=== PATIENT | male | born 1965 | race Hispanic/Latino ===

== ENCOUNTER 2019-01-29 11:15 | Inpatient (IN) | payer OTHER ==
--- NOTE | 2019-01-29 13:23 | Emergency Department Report ---
HPI - General Chief Complaint: Abdominal Pain Time Seen by Provider: 01/29/19 12:51 - HPI HPI: 53-year-old male presents to the emergency department from [facility] for a medical evaluation secondary to some swelling in the bilateral lower extre mities and the scrotum. He also complains of some shortness of breath that worsens with exertion and with laying flat. He is currently at [facility] secondary to some recent suicidal ideations and there appears to be some type of diagnosis of bipolar disorder. The patient has a past medical history of hypertension, coronary artery disease with previous AZ, CVA without residual deficits, COPD and previous transaminitis. He denies any alcohol, tobacco or illicit drug use. ED Past Medical Hx - Past Medical History Hx Psychiatric Treatment: Yes - Social History Smoking Status: Former Smoker - Medications Home Medications: Home Medications Medication Instructions Recorded Confirmed Last Taken Type ALBUTEROL Inhaler (OR & NICU) 2 puff IH Q6H 01/29/19 01/29/19 Unknown History [Proair] Apixaban [Eliquis] 5 mg PO BID 01/29/19 01/29/19 01/29/19 History Carvedilol [Coreg] 3.125 mg PO BID 01/29/19 01/29/19 01/29/19 History Divalproex [Steven GUZMAN] 250 mg PO TID 01/29/19 01/29/19 01/29/19 History Ferrous Sulfate [Iron 325 MG] 325 mg PO QAM 01/29/19 01/29/19 01/29/19 History Furosemide [Lasix] 20 mg PO QAM 01/29/19 01/29/19 01/29/19 History Lisinopril [Zestril TAB] 2.5 mg PO QAM 01/29/19 01/29/19 01/29/19 History Pantoprazole [Protonix] 40 mg PO QAM 01/29/19 01/29/19 Unknown History QUEtiapine [SEROquel] 25 mg PO BID 01/29/19 01/29/19 01/29/19 History Spironolactone [Aldactone] 12.5 mg PO QDAY 01/29/19 01/29/19 01/29/19 History ED Review of Systems ROS: Stated complaint: LOWER ABD PAIN/TESTICLES SWELLING Other details as noted in HPI Comment: All other systems reviewed and negative Constitutional: denies: chills, fever Eyes: denies: eye pain, vision change ENT: denies: ear pain, throat pain Respiratory: orthopnea, SOB with exertion. denies: shortness of breath Cardiovascular: edema. denies: chest pain, palpitations Gastrointestinal: denies: abdominal pain, vomiting Genitourinary: denies: dysuria, frequency Musculoskeletal: denies: back pain, arthralgia Skin: denies: rash, lesions Neurological: denies: headache, numbness Physical Exam - Physical Exam Vital Signs: Vital Signs 01/29/19 01/29/19 12:46 12:48 Temperature 97.4 F L Pulse Rate 93 H Respiratory 26 H 26 H Rate Blood Pressure 143/125 [Left] O2 Sat by Pulse 95 96 Oximetry Physical Exam: GENERAL: The patient is well-developed well-nourished. HENT: Normocephalic. Atraumatic. Patient has moist mucous membranes. EYES: Extraocular motions are intact. Pupils equal reactive to light bilaterally. NECK: Supple. Trachea is midline. CHEST/LUNGS: Coarse breath sounds. No tachypnea or accessory muscle use. There is no respiratory distress noted. HEART/CARDIOVASCULAR: Regular. There is no tachycardia. There is no murmur. ABDOMEN: Abdomen is soft, nontender. Patient has normal bowel sounds. There is no abdominal distention. SKIN: 2+ pitting edema to the bilateral lower extremity. Nonpitting edema around the scrotum. NEURO: The patient is awake, alert, and oriented. The patient is cooperative. The patient has no focal neurologic deficits. The patient has normal speech. MUSCULOSKELETAL: There is no tenderness or deformity. There is no evidence of acute injury. ED Course Vital Signs 01/29/19 01/29/19 12:46 12:48 Temperature 97.4 F L Pulse Rate 93 H Respiratory 26 H 26 H Rate Blood Pressure 143/125 [Left] O2 Sat by Pulse 95 96 Oximetry ED Medical Decision Making - Lab Data Result diagrams: 01/29/19 13:58 01/29/19 13:58 - EKG Data -: EKG Interpreted by Nc EKG shows normal: sinus rhythm, axis (left axis deviation), intervals, QRS complexes (nonspecific intraventricular conduction delay), ST-T waves Rate: normal - EKG Data When compared to previous EKG there are: previous EKG unavailable Interpretation: other (sinus rhythm, left axis deviation, nonspecific intraventricular conduction delay) - Radiology Data Radiology results: image reviewed interpreted by me: Chest x-ray shows some pulmonary vascular congestion and bilateral basilar effusions. - Medical Decision Making This patient presents from his psychiatric facility with complaint of lower extremity and scrotal swelling, as well as some shortness of breath that worsens with exertion and orthopnea. EKG does not show any signs of ST elevation AZ. Chest x-ray shows some pulmonary vascular congestion and bilateral basilar pleural effusions. First troponin negative. BNP of almost 9000. Patient was given some Lasix for diuresis and will be admitted to the hospital for further evaluation and treatment. The patient was accepted for admission by the hospitalist, Dr. Shabazz. - Differential Diagnosis CHF, AZ, Venous stasis Critical Care Time: No Critical care attestation.: If time is entered above; I have spent that time in minutes in the direct care of this critically ill patient, excluding procedure time. ED Disposition Clinical Impression: CHF exacerbation Qualifiers: Heart failure type: unspecified Qualified Code(s): I50.9 - Heart failure, unspecified Hypertension Qualifiers: Hypertension type: essential hypertension Qualified Code(s): I10 - Essential (primary) hypertension Disposition: OP ADMIT IP TO THIS HOSP Is pt being admited?: Yes Condition: Fair Time of Disposition: 15:36
--- NOTE | 2019-01-29 13:43 | XRay Report ---
CHEST 1 VIEW 01/29/2019 1:20 PM INDICATION / CLINICAL INFORMATION: SOB. COMPARISON: None available. FINDINGS: SUPPORT DEVICES: None. HEART / MEDIASTINUM: Mild cardiomegaly. LUNGS / PLEURA: Small bilateral pleural effusions and mild bilateral perihilar interstitial opacifica tion likely reflecting mild pulmonary edema. No pneumothorax. ADDITIONAL FINDINGS: No significant additional findings. IMPRESSION: 1. Combined findings as described above likely suggest mild CHF. Signer Name: Lucien Linares MD Signed: 01/29/2019 1:39 PM Workstation Name: [id number]
[2019-01-29 14:33] LABS: Basophils % (Auto) 0.5 % (0.0-1.8); Eosinophils # (Auto) 0.2 K/mm3 (0.0-0.4); Eosinophils % (Auto) 2.4 % (0.0-4.3); Hematocrit 36.3 % (35.5-45.6); Hemoglobin 11.9 gm/dl (11.8-15.2); Lymphocytes # (Auto) 1.8 K/mm3 (1.2-5.4); Lymphocytes % (Auto) 26.1 % (13.4-35.0); Mean Corpuscular HGB Conc 33 % (32-34); Mean Corpuscular Hemoglobin 26 pg (28-32); Mean Corpuscular Volume 79 fl (84-94); Monocytes # (Auto) 0.4 K/mm3 (0.0-0.8); Monocytes % (Auto) 5.5 % (0.0-7.3); Platelet Count 191 K/mm3 (140-440); Red Blood Count 4.58 M/mm3 (3.65-5.03); Red Cell Distribution Width 19.1 % (13.2-15.2)
[2019-01-29 14:41] LABS: Alanine Aminotransferase 19 units/L (7-56); Albumin 3.1 g/dL (3.9-5); BUN/Creatinine Ratio 27; Blood Urea Nitrogen 27 mg/dL (9-20); Calcium 8.3 mg/dL (8.4-10.2); Hemolysis Index 21
[2019-01-29] MEDS ORDERED: LASIX IV ONE (15:07)
[2019-01-29 18:39] LABS: Bilirubin,Urine NEG (Negative); Blood,Urine NEG (Negative); Color,Urine Colorless (Yellow); Protein,Urine <15 mg/dL mg/dL (Negative); Urobilinogen,Urine < 2.0 mg/dL (<2.0)
[2019-01-29 19:03] LABS: WBC,Urine < 1.0 /HPF (0.0-6.0)
--- NOTE | 2019-01-29 21:41 | Event Note ---
Date: 01/29/19 Please see dictated history and physical in the reports CHF exacerbation Hypertension Anticoagulation Bipolar disorder GERD
[2019-01-29] MEDS ORDERED: DILAUDID IV PRN (21:53)
[2019-01-29] MEDS ORDERED: ZOFRAN IV PRN ×2 (21:53→21:55)
[2019-01-29] MEDS ORDERED: SODIUM CHLORIDE FLUSH SYRINGE 10 ML IV PRN ×2 (21:53→21:55)
[2019-01-29] MEDS ORDERED: TYLENOL PO PRN (21:55)
[2019-01-29] MEDS ORDERED: SODIUM CHLORIDE FLUSH SYRINGE 10 ML IV SCH (22:00)
[2019-01-29] MEDS ORDERED: PROAIR IH SCH (22:00)
[2019-01-29] MEDS ORDERED: PROVENTIL IH SCH (22:07)
--- NOTE | 2019-01-29 22:22 | History and Physical Report ---
CHIEF COMPLAINT: Increasing shortness of breath. HISTORY OF PRESENT ILLNESS: A 53-year-old male, comes to the Emergency Room from [facility] for medical evaluation. The patient has increasing swelling of both the legs and the scrotum. Also, increasing shortness of breath, which worsens with exertion and lying flat. The patient was admitted to [email or web address] for suicidal ideations and bipolar disorder. The patient has history of hypertension, LA, coronary artery disease and cerebrovascular accident without residual deficits. The patient does not want to give much history. He requests that I will go through the chart and get his history. In short, the patient has shortness of breath on exertion and also on lying flat. No chest pain. Exacerbating factor is exercise and stress. The relieving factor is rest. PAST MEDICAL HISTORY: Bipolar disorder, hypertension, anticoagulation, congestive heart failure and GERD. PAST SURGICAL HISTORY: Unavailable. FAMILY HISTORY: Hypertension. SOCIAL HISTORY: Does not smoke. No alcohol, no recreational drugs. CURRENT MEDICATIONS: Eliquis 5 mg twice a day, Coreg 3.125 twice a day, Depakote 250 mg p.o. t.i.d., iron tablets 325 mg p.o. daily, furosemide 20 mg p.o. daily, lisinopril 2.5 mg p.o. daily, Protonix 40 mg p.o. daily, Seroquel 25 mg b.i.d., Aldactone 12.5 mg p.o. daily. REVIEW OF SYSTEMS: Significant for shortness of breath with exertion and orthopnea present. Swelling of both lower extremities present. Otherwise, review of systems negative. PHYSICAL EXAMINATION: GENERAL: Middle-aged male, noncooperative. VITAL SIGNS: Blood pressure is 115/81, temperature is 97.6, pulse is 100, respirations are 22, sats are 98%. HEENT: Unremarkable. Pupils equal and reactive. NECK: Supple, no lymphadenopathy, no thyromegaly. LUNGS: Clear to auscultation and percussion. Good air entry. CARDIOVASCULAR: S1, S2 heard. No gallop, no murmur, no rub. Apical impulse in left fifth intercostal space and midclavicular line. ABDOMEN: Soft and benign. No hepatosplenomegaly. No guarding, no rigidity. Hernial orifices are normal. EXTREMITIES: 2+ pedal edema present. CENTRAL NERVOUS SYSTEM: Alert and oriented x 4, nonfocal exam. SKIN: Normal. Slight erythema present on the lower extremities. LABORATORY DATA: Significant for white count of 7000, hemoglobin of 11.9, hematocrit of 36.3, platelet count of 191,000. Sodium is 141, potassium is 4.7, chloride is 101.2, bicarbonate is 31, BUN and creatinine is 27 and 1.0, calcium is 8.3, AST is 20, ALT is 19, alkaline phosphatase is 95. BNP is 8431, total protein is 5.6 and albumin is 3.1. Urine is negative for infection. pH is 8.0. EKG shows heart rate of 95 per minute, sinus rhythm. No acute ST-T wave changes. Chest x-ray shows mild CHF. ASSESSMENT AND PLAN: 1. Congestive heart failure exacerbation. The patient initiated on IV Lasix. Echocardiogram ordered. Daily weights, daily intake and output. Cardiology consult requested. 2. Hypertension. Continue lisinopril and Coreg. 3. Anticoagulation, unclear why the patient is on anticoagulation. The patient is not able to tell. The patient has normal sinus rhythm. Continue Eliquis. 4. Bipolar disorder. Continue Seroquel. 5. Gastroesophageal reflux disease. Continue pantoprazole. 6. Anemia. Continue Lasix. Continue ferrous sulfate. 7. Deep venous thrombosis prophylaxis. The patient is on Eliquis. No Lovenox was started. The patient is already on Protonix for GI prophylaxis. JOB# [id number] AUTUMN/MARILYN
[2019-01-29] MEDS: ALDACTONE PO SCH (22:45)
[2019-01-29] MEDS: COREG PO SCH (22:45)
[2019-01-29] MEDS: ELIQUIS PO SCH (22:45)
[2019-01-29] MEDS: K-DUR PO SCH (22:45)
[2019-01-29] MEDS: SODIUM CHLORIDE FLUSH SYRINGE 10 ML IV SCH (23:19)
[2019-01-30] MEDS ORDERED: PROVENTIL IH PRN (00:53)
[2019-01-30] MEDS: IBUPROFEN PO PRN (01:11)
[2019-01-30] MEDS: LASIX IV SCH ×3 (06:06→18:21)
[2019-01-30 07:11] LABS: Alanine Aminotransferase 18 units/L (7-56); Albumin 3.1 g/dL (3.9-5); BUN/Creatinine Ratio 28; Blood Urea Nitrogen 28 mg/dL (9-20); Calcium 8.3 mg/dL (8.4-10.2); Hemolysis Index 2
[2019-01-30 07:15] LABS: Basophils % (Auto) 0.2 % (0.0-1.8); Eosinophils # (Auto) 0.2 K/mm3 (0.0-0.4); Eosinophils % (Auto) 2.6 % (0.0-4.3); Hematocrit 33.8 % (35.5-45.6); Hemoglobin 10.9 gm/dl (11.8-15.2); Lymphocytes # (Auto) 2.3 K/mm3 (1.2-5.4); Lymphocytes % (Auto) 30.8 % (13.4-35.0); Mean Corpuscular HGB Conc 32 % (32-34); Mean Corpuscular Volume 79 fl (84-94); Monocytes # (Auto) 0.6 K/mm3 (0.0-0.8); Monocytes % (Auto) 8.5 % (0.0-7.3); Platelet Count 219 K/mm3 (140-440); Red Blood Count 4.27 M/mm3 (3.65-5.03)
[2019-01-30 07:23] LABS: Mean Corpuscular Hemoglobin 26 pg (28-32)
[2019-01-30] MEDS: PROVENTIL IH SCH ×3 (08:08→20:46)
[2019-01-30] MEDS: ELIQUIS PO SCH ×2 (09:35→21:43)
[2019-01-30] MEDS: FEOSOL PO SCH (09:35)
[2019-01-30] MEDS: PROTONIX PO SCH (09:36)
[2019-01-30] MEDS: SODIUM CHLORIDE FLUSH SYRINGE 10 ML IV SCH ×2 (09:46→21:44)
[2019-01-30] MEDS: COREG PO SCH ×2 (09:47→21:43)
[2019-01-30] MEDS: ALDACTONE PO SCH (09:48)
[2019-01-30] MEDS: ZESTRIL PO SCH (09:50)
[2019-01-30] MEDS: K-DUR PO SCH ×2 (10:00→21:47)
--- NOTE | 2019-01-30 12:10 | Consultation ---
History of Present Illness Consult date: 01/30/19 Requesting physician: GARRICK ZHAO Consult reason: congestive heart failure History of present illness: The patient is a rather poor historian. He was transferred to [facility] from [facility]. He claims that he has had progressively worsening leg edema, shortness of breath and orthopnea since September 2018. He has no chest pain. He was apparently admitted to [place] on account of suicidal ideation and bipolar disorder. 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 the past.) Past Surgical History: hernia repair (abdominal) Social history: other (former smoker) Family history: CAD Medications and Allergies Allergies Allergy/AdvReac Type Severity Reaction Status Date / Time No Known Allergies Allergy Unverified 01/29/19 12:35 Home Medications Medication Instructions Recorded Confirmed Last Taken Type ALBUTEROL Inhaler (OR & NICU) 2 puff IH Q6H 01/29/19 01/29/19 Unknown History [Proair] Apixaban [Eliquis] 5 mg PO BID 01/29/19 01/29/19 01/29/19 History Carvedilol [Coreg] 3.125 mg PO BID 01/29/19 01/29/19 01/29/[address] [Steven GUZMAN] 250 mg PO TID 01/29/19 01/29/19 01/29/19 History Ferrous Sulfate [Iron 325 MG] 325 mg PO QAM 01/29/19 01/29/19 01/29/19 History Furosemide [Lasix] 20 mg PO QAM 01/29/19 01/29/19 01/29/19 History Lisinopril [Zestril TAB] 2.5 mg PO QAM 01/29/19 01/29/19 01/29/19 History Pantoprazole [Protonix] 40 mg PO QAM 01/29/19 01/29/19 Unknown History QUEtiapine [SEROquel] 25 mg PO BID 01/29/19 01/29/19 01/29/19 History Spironolactone [Aldactone] 12.5 mg PO QDAY 01/29/19 01/29/19 01/29/19 History Active Meds: Active Medications Acetaminophen (Tylenol) 650 mg PO Q4H PRN PRN Reason: Pain MILD(1-3)/Fever >100.5/RAUSCH Albuterol (Proventil) 2.5 mg IH Q4HRT PRN PRN Reason: Shortness Of Breath Albuterol (Proventil) 2.5 mg IH TIDRT [facility] Last Admin: 01/30/19 08:08 Dose: 2.5 mg Documented by: Apixaban (Eliquis) 5 mg PO BID [facility]; Protocol Last Admin: 01/30/19 09:35 Dose: 5 mg Documented by: Carvedilol (Coreg) 3.125 mg PO BID [facility] Last Admin: 01/30/19 09:47 Dose: 3.125 mg Documented by: Divalproex Sodium (Depakote Dr) 250 mg PO TID [facility] Last Admin: 01/30/19 08:29 Dose: 250 mg Documented by: Ferrous Sulfate (Feosol) 325 mg PO QAM [facility] Last Admin: 01/30/19 09:35 Dose: 325 mg Documented by: Furosemide (Lasix) 40 mg IV 0600,1800 [facility] Last Admin: 01/30/19 06:06 Dose: 40 mg Documented by: Hydromorphone HCl (Dilaudid) 0.5 mg IV Q3H PRN PRN Reason: Pain , Severe (7-10) Ibuprofen (Ibuprofen) 600 mg PO Q6H PRN PRN Reason: Pain, Mild (1-3) Last Admin: 01/30/19 01:11 Dose: 600 mg Documented by: Lisinopril (Zestril) 2.5 mg PO QAM [facility] Last Admin: 01/30/19 09:50 Dose: Not Given Documented by: Ondansetron HCl (Zofran) 4 mg IV Q8H PRN PRN Reason: Nausea And Vomiting Pantoprazole Sodium (Protonix) 40 mg PO QAM [facility] Last Admin: 01/30/19 09:36 Dose: 40 mg Documented by: Potassium Chloride (K-Dur) 20 meq PO Q12H [facility] Last Admin: 01/29/19 22:45 Dose: 20 meq Documented by: Quetiapine Fumarate (Seroquel) 25 mg PO BID [facility] Last Admin: 01/30/19 09:36 Dose: 25 mg Documented by: Sodium Chloride (Sodium Chloride Flush Syringe 10 Ml) 10 ml IV BID [facility] Last Admin: 01/30/19 09:46 Dose: 10 ml Documented by: Sodium Chloride (Sodium Chloride Flush Syringe 10 Ml) 10 ml IV PRN PRN PRN Reason: LINE FLUSH Spironolactone (Aldactone) 12.5 mg PO QDAY [facility] Last Admin: 01/30/19 09:48 Dose: 12.5 mg Documented by: Review of Systems Constitutional: no fever, no chills Ears, nose, mouth and throat: no ear pain, no ear discharge, no sore throat Cardiovascular: orthopnea, edema, shortness of breath, no chest pain, no palpitations, no lightheadedness Respiratory: no cough, no hemoptysis Gastrointestinal: no abdominal pain, no nausea, no vomiting, no diarrhea, no constipation Genitourinary Male: no dysuria, no urinary frequency Rectal: no pain, no bleeding Musculoskeletal: no neck stiffness, no neck pain, no myalgias Integumentary: no rash, no pruritis Neurological: no weakness, no parathesias, no numbness, no headaches Endocrine: no cold intolerance, no heat intolerance Hematologic/Lymphatic: no easy bruising, no easy bleeding Allergic/Immunologic: no urticaria, no wheezing Physical Examination Vital Signs Last Vital Signs Temp 97.4 F L 01/30/19 07:44 Pulse 97 H 01/30/19 09:50 Resp 18 01/30/19 08:18 BP 104/74 01/30/19 09:50 Pulse Ox 100 01/30/19 07:44 General appearance: no acute distress HEENT: Positive: EOMI, Normocephaly, Mucus Membranes Moist Neck: Positive: neck supple, trachea midline, JVD/HJR Cardiac: Positive: Reg Rate and Rhythm, S1/S2 Lungs: Positive: clear to auscultation Neuro: Positive: Grossly Intact Abdomen: Positive: Soft, Active Bowel Sounds. Negative: Tender Skin: Positive: Clear. Negative: Rash Musculoskeletal: Normal Range of Motion Extremities: Present: +2 Edema (pitting bilateral leg edema) Results 01/30/19 06:25 01/30/19 06:25 Cardiac Enzymes 01/29/19 01/30/19 Range/Units 13:58 06:25 AST 20 17 (5-40) units/L CBC 01/29/19 01/30/19 Range/Units 13:58 06:25 WBC 7.0 7.5 (4.5-11.0) K/mm3 RBC 4.58 4.27 (3.65-5.03) M/mm3 Hgb 11.9 10.9 L (11.8-15.2) gm/dl Hct 36.3 33.8 L (35.5-45.6) % Plt Count 191 219 (140-440) K/mm3 Lymph # 1.8 2.3 (1.2-5.4) K/mm3 [place] # 0.4 0.6 (0.0-0.8) K/mm3 Eos # 0.2 0.2 (0.0-0.4) K/mm3 Baso # 0.0 0.0 (0.0-0.1) K/mm3 Comprehensive Metabolic Panel 01/29/19 01/30/19 Range/Units 13:58 06:25 Sodium 141 140 (137-145) mmol/L Potassium 4.7 4.4 (3.6-5.0) mmol/L Chloride 101.2 99.8 (98-107) mmol/L Carbon Dioxide 31 H 32 H (22-30) mmol/L BUN 27 H 28 H (9-20) mg/dL Creatinine 1.0 1.0 (0.8-1.5) mg/dL Glucose 80 88 (75-100) mg/dL Calcium 8.3 L 8.3 L (8.4-10.2) mg/dL AST 20 17 (5-40) units/L ALT 19 18 (7-56) units/L Alkaline Phosphatase 95 94 (35-129) units/L Total Protein 5.6 L 5.5 L (6.3-8.2) g/dL Albumin 3.1 L 3.1 L (3.9-5) g/dL - Imaging and Cardiology EKG: image reviewed EKG interpretations - Telemetry EKG Rhythm: Sinus Rhythm - EKG Sinus rhythms and dysrhythmias: sinus rhythm Assessment and Plan I agree with his current regimen. Obtain echocardiogram. - Patient Problems (1) Acute heart failure Current Visit: Yes Status: Acute (2) COPD (chronic obstructive pulmonary disease) Current Visit: Yes Status: Chronic (3) Hypertension Current Visit: Yes Status: Chronic Qualifiers: Hypertension type: essential hypertension Qualified Code(s): I10 - Essential (primary) hypertension (4) H/O: CVA (cerebrovascular accident) Current Visit: Yes Status: Chronic (5) Bipolar disorder Current Visit: Yes Status: Chronic
--- NOTE | 2019-01-30 18:22 | Progress Note ---
Assessment and Plan Assessment and plan: Acute on chronic systolic CHF Admitted to Tele lasix iv Lisinopril Coreg Cardiology following Bipolar patient admitted here from [facility] Psych consulted Hypertension Monitor BP GERD Full code status History Interval history: Shortness of breath No chest pain Hospitalist Physical - Physical exam Narrative exam: Gen: Not in acute distress, sitting up in chair HEENT: Normocephalic, atraumatic Neck: supple, no JVD Heart: S1 and S2 reg, no murmurs, rubs or gallop Lungs:Bilateral basal crackles Abd: soft, non tender, non distended, normal BS Ext: Bilateral pedal edema, no clubbing, no cyanosis Neuro:awake,alert, Oriented X 3. No focal signs - Constitutional Vitals: Temp Pulse Resp BP Pulse Ox 97.1 F L 91 H 20 100/67 94 01/30/19 16:19 01/30/19 16:23 01/30/19 16:19 01/30/19 16:23 01/30/19 16:19 General appearance: Present: no acute distress Results - Labs CBC & Chem 7: 01/30/19 06:25 01/30/19 06:25 Labs: Laboratory Last Values WBC 7.5 K/mm3 (4.5-11.0) 01/30/19 06:25 RBC 4.27 M/mm3 (3.65-5.03) 01/30/19 06:25 Hgb 10.9 gm/dl (11.8-15.2) L 01/30/19 06:25 Hct 33.8 % (35.5-45.6) L 01/30/19 06:25 MCV 79 fl (84-94) L 01/30/19 06:25 MCH 26 pg (28-32) L 01/30/19 06:25 MCHC 32 % (32-34) 01/30/19 06:25 RDW 19.0 % (13.2-15.2) H 01/30/19 06:25 Plt Count 219 K/mm3 (140-440) 01/30/19 06:25 Lymph % (Auto) 30.8 % (13.4-35.0) 01/30/19 06:25 [place] % (Auto) 8.5 % (0.0-7.3) H 01/30/19 06:25 Eos % (Auto) 2.6 % (0.0-4.3) 01/30/19 06:25 Baso % (Auto) 0.2 % (0.0-1.8) 01/30/19 06:25 Lymph # 2.3 K/mm3 (1.2-5.4) 01/30/19 06:25 [place] # 0.6 K/mm3 (0.0-0.8) 01/30/19 06:25 Eos # 0.2 K/mm3 (0.0-0.4) 01/30/19 06:25 Baso # 0.0 K/mm3 (0.0-0.1) 01/30/19 06:25 Seg Neutrophils % 57.9 % (40.0-70.0) 01/30/19 06:25 Seg Neutrophils # 4.4 K/mm3 (1.8-7.7) 01/30/19 06:25 Sodium 140 mmol/L (137-145) 01/30/19 06:25 Potassium 4.4 mmol/L (3.6-5.0) 01/30/19 06:25 Chloride 99.8 mmol/L (98-107) 01/30/19 06:25 Carbon Dioxide 32 mmol/L (22-30) H 01/30/19 06:25 13 mmol/L 01/30/19 06:25 BUN 28 mg/dL (9-20) H 01/30/19 06:25 1.0 mg/dL (0.8-1.5) 01/30/19 06:25 Estimated GFR > 60 ml/min 01/30/19 06:25 28 % 01/30/19 06:25 Glucose 88 mg/dL (75-100) 01/30/19 06:25 6.0 % (4-6) 01/29/19 13:58 Calcium 8.3 mg/dL (8.4-10.2) L 01/30/19 06:25 0.60 mg/dL (0.1-1.2) 01/30/19 06:25 AST 17 units/L (5-40) 01/30/19 06:25 ALT 18 units/L (7-56) 01/30/19 06:25 94 units/L (35-129) 01/30/19 06:25 < 0.010 ng/mL (0.00-0.029) 01/29/19 13:58 NT-Pro-B Natriuret Pep 8431 pg/mL (0-900) H 01/29/19 13:58 5.5 g/dL (6.3-8.2) L 01/30/19 06:25 3.1 g/dL (3.9-5) L 01/30/19 06:25 1.3 % 01/30/19 06:25 Colorless (Yellow) 01/29/19 18:10 Clear (Clear) 01/29/19 18:10 8.0 (5.0-7.0) H 01/29/19 18:10 Ur Specific [place] 1.006 (1.003-1.030) 01/29/19 18:10 <15 mg/dl mg/dL (Negative) 01/29/19 18:10 Neg mg/dL (Negative) 01/29/19 18:10 Neg mg/dL (Negative) 01/29/19 18:10 Neg (Negative) 01/29/19 18:10 Neg (Negative) 01/29/19 18:10 Neg (Negative) 01/29/19 18:10 < 2.0 mg/dL (<2.0) 01/29/19 18:10 Ur Leukocyte Esterase Neg (Negative) 01/29/19 18:10 < 1.0 /HPF (0.0-6.0) 01/29/19 18:10 1.0 /HPF (0.0-6.0) 01/29/19 18:10 Active Medications - Current Medications Current Medications: Generic Name Dose Route Start Last Admin Trade Name Freq PRN Reason Stop Dose Admin Acetaminophen 650 mg 01/29/19 21:53 Tylenol PO Q4H PRN Pain MILD(1-3)/Fever >100.5/RAUSCH Albuterol 2.5 mg 01/30/19 00:53 Proventil IH Q4HRT PRN Shortness Of Breath Albuterol 2.5 mg 01/30/19 08:00 01/30/19 14:20 Proventil IH 2.5 mg TIDRT ZULMA Administration Apixaban 5 mg 01/29/19 22:00 01/30/19 09:35 Eliquis PO 5 mg BID ZULMA Administration Protocol Carvedilol 3.125 mg 01/29/19 22:00 01/30/19 09:47 Coreg PO 3.125 mg BID ZULMA Administration Divalproex Sodium 250 mg 01/30/19 08:00 01/30/19 15:[address] PO 250 mg TID ZULMA Administration Ferrous Sulfate 325 mg 01/30/19 10:00 01/30/19 09:35 Feosol PO 325 mg QAM ZULMA Administration Furosemide 40 mg 01/30/19 06:00 01/30/19 18:19 Lasix IV 40 mg 0600,1800 ZULMA Administration Hydromorphone HCl 0.5 mg 01/29/19 21:53 Dilaudid IV Q3H PRN Pain , Severe (7-10) Ibuprofen 600 mg 01/29/19 21:53 01/30/19 01:11 Ibuprofen PO 600 mg Q6H PRN Administration Pain, Mild (1-3) Lisinopril 2.5 mg 01/30/19 10:00 01/30/19 09:50 Zestril PO Not Given QAM ZULMA Ondansetron HCl 4 mg 01/29/19 21:53 Zofran IV Q8H PRN Nausea And Vomiting Pantoprazole Sodium 40 mg 01/30/19 10:00 01/30/19 09:36 Protonix PO 40 mg QAM ZULMA Administration Potassium Chloride 20 meq 01/29/19 22:00 01/30/19 10:00 K-Dur PO Not Given Q12H ZULMA Quetiapine Fumarate 25 mg 01/29/19 22:00 01/30/19 09:36 Seroquel PO 25 mg BID ZULMA Administration Sodium Chloride 10 ml 01/29/19 22:00 01/30/19 09:46 Sodium Chloride Flush Syringe 10 Ml IV 10 ml BID ZULMA Administration Sodium Chloride 10 ml 01/29/19 21:55 Sodium Chloride Flush Syringe 10 Ml IV PRN PRN LINE FLUSH Spironolactone 12.5 mg 01/29/19 22:00 01/30/19 09:48 Aldactone PO 12.5 mg QDAY ZULMA Administration
[2019-01-31] MEDS: IBUPROFEN PO PRN ×4 (01:26→22:28)
[2019-01-31] MEDS: LASIX IV SCH (07:07)
[2019-01-31] MEDS: PROVENTIL IH SCH ×3 (08:18→20:25)
[2019-01-31] MEDS: COREG PO SCH ×2 (10:38→22:21)
[2019-01-31] MEDS: ELIQUIS PO SCH ×2 (10:38→22:22)
[2019-01-31] MEDS: FEOSOL PO SCH (10:38)
[2019-01-31] MEDS: PROTONIX PO SCH (10:39)
[2019-01-31] MEDS: ALDACTONE PO SCH (10:39)
[2019-01-31] MEDS: SODIUM CHLORIDE FLUSH SYRINGE 10 ML IV SCH ×2 (10:41→22:23)
[2019-01-31] MEDS: ZESTRIL PO SCH (10:41)
--- NOTE | 2019-01-31 15:13 | Consultation ---
History of Present Illness - Reason for Consult Consult date: 01/31/19 Reason for consult: Mental Health Evaluation Requesting physician: LETICIA BRIGHT - Chief Complaint Chief complaint: "I have issues from my past" - History of Present Psychiatric Illness 53 y.o. white male who presnted to the ER from [place] for SOB and swelling in his scrotum/lower extremities. Today the patient was calkm and cooperative during the assessment. He stated that he went to [facility] He stated that he got frustrated with the staff and mentioned something about dying. He stated that he was placed on a 1013 and transferred to [place], He stated that he was never suicidal. He stated that he suffer from PTSD form his days in the [employer]. He stated that he experience nightmares. He stated that he want to seek therapy for his PTSD and take medication. He denies SI/HI's and AVH's. He denies a poor appetite, but acknowledged erratic sleep. He denies recreational drug use and alcohol consumption (etoh).He stated that Depakote (mood) is a home medication. Medications and Allergies Allergies Allergy/AdvReac Type Severity Reaction Status Date / Time No Known Allergies Allergy Unverified 01/29/19 12:35 Home Medications Medication Instructions Recorded Confirmed Last Taken Type ALBUTEROL Inhaler (OR & NICU) 2 puff IH Q6H 01/29/19 01/29/19 Unknown History [Proair] Apixaban [Eliquis] 5 mg PO BID 01/29/19 01/29/19 01/29/19 History Carvedilol [Coreg] 3.125 mg PO BID 01/29/19 01/29/19 01/29/[address] [DepaKOTE DR] 250 mg PO TID 01/29/19 01/29/19 01/29/19 History Ferrous Sulfate [Iron 325 MG] 325 mg PO QAM 01/29/19 01/29/19 01/29/19 History Furosemide [Lasix] 20 mg PO QAM 01/29/19 01/29/19 01/29/19 History Lisinopril [Zestril TAB] 2.5 mg PO QAM 01/29/19 01/29/19 01/29/19 History Pantoprazole [Protonix] 40 mg PO QAM 01/29/19 01/29/19 Unknown History QUEtiapine [SEROquel] 25 mg PO BID 01/29/19 01/29/19 01/29/19 History Spironolactone [Aldactone] 12.5 mg PO QDAY 01/29/19 01/29/19 01/29/19 History Active Meds: Active Medications Acetaminophen (Tylenol) 650 mg PO Q4H PRN PRN Reason: Pain MILD(1-3)/Fever >100.5/RAUSCH Albuterol (Proventil) 2.5 mg IH Q4HRT PRN PRN Reason: Shortness Of Breath Albuterol (Proventil) 2.5 mg IH TIDRT [facility] Last Admin: 01/31/19 15:07 Dose: Not Given Documented by: Apixaban (Eliquis) 5 mg PO BID [facility]; Protocol Last Admin: 01/31/19 10:38 Dose: 5 mg Documented by: Carvedilol (Coreg) 3.125 mg PO BID [facility] Last Admin: 01/31/19 10:38 Dose: 3.125 mg Documented by: Divalproex Sodium (Depakote Dr) 250 mg PO TID [facility] Last Admin: 01/31/19 14:04 Dose: 250 mg Documented by: Ferrous Sulfate (Feosol) 325 mg PO QAM [facility] Last Admin: 01/31/19 10:38 Dose: 325 mg Documented by: Furosemide (Lasix) 40 mg IV 0600,1800 [facility] Last Admin: 01/31/19 07:07 Dose: 40 mg Documented by: Hydromorphone HCl (Dilaudid) 0.5 mg IV Q3H PRN PRN Reason: Pain , Severe (7-10) Ibuprofen (Ibuprofen) 600 mg PO Q6H PRN PRN Reason: Pain, Mild (1-3) Last Admin: 01/31/19 08:16 Dose: 600 mg Documented by: Lisinopril (Zestril) 2.5 mg PO QAM [facility] Last Admin: 01/31/19 10:41 Dose: Not Given Documented by: Ondansetron HCl (Zofran) 4 mg IV Q8H PRN PRN Reason: Nausea And Vomiting Pantoprazole Sodium (Protonix) [facility] Last Admin: 01/31/19 10:39 Dose: 40 mg Documented by: Sodium Chloride (Sodium Chloride Flush Syringe 10 Ml) 10 ml IV BID [facility] Last Admin: 01/31/19 10:41 Dose: 10 ml Documented by: Sodium Chloride (Sodium Chloride Flush Syringe 10 Ml) 10 ml IV PRN PRN PRN Reason: LINE FLUSH Spironolactone (Aldactone) 12.5 mg PO QDAY [facility] Last Admin: 01/31/19 10:39 Dose: 12.5 mg Documented by: Past psychiatric history - Past Medical History Past Medical History: hypertension Past Surgical History: No surgical history - past Psychiatric treatment and history psychiatric treatment history: Hx of PTSD and was seen at the [place]. Denies a a fam psy h x. - Social History Social history: other (Homeless) Mental Status Exam - Vital signs Last Vital Signs Temp 98.3 F 01/31/19 12:40 Pulse 96 H 01/31/19 12:40 Resp 20 01/31/19 12:40 BP 81/51 01/31/19 12:40 Pulse Ox 99 01/31/19 12:40 - Exam Narrative exam: MSE: Appearance: calm, cooperative Behavior: regular eye contact Speech: regular rate and tone Mood: "okay" Affect: congruent to mood Thought Process: linear Thought Content: denies SI/HI's and AVH's Motor Activity: sitting up in bed Cognition: A/O x3 Insight: appropriate Judgment: appropriate Results Result Diagrams: 01/30/19 06:25 01/30/19 06:25 All other labs normal. Assessment and Plan Assessment and plan: Impression: PTSD. Insomnia. Today the patient was calm and cooperative during the assessment. The patient's is no threat to self. DDx: R/O MDD Recommendation/Plan: Rescind 1013. Start Prozac 20 mg PO daily for PTSD and Melatonin 5 mg PO HS for sleep. Discussed possible suicidality/medication induced rangel with the patient reference Prozac, he verbalized understanding. Will follow up with the patient in 24 hours. Dispo: The patient can follow up with [facility] or the [place] for outpatient psy services. Staffed with Dr Monica Meier.
[2019-01-31] MEDS: PROzac PO SCH (15:49)
[2019-01-31] MEDS ORDERED: PROzac PO SCH (16:00)
--- NOTE | 2019-01-31 17:31 | Progress Note ---
Assessment and Plan Continue IV diuretics. Schedule coronary angiography in am - discussed with pt who has agreed to proceed. - Patient Problems (1) Acute HFrEF (heart failure with reduced ejection fraction) Current Visit: Yes Status: Acute (2) Cardiomyopathy Current Visit: Yes Status: Acute (3) Pericardial effusion Current Visit: Yes Status: Acute (4) COPD (chronic obstructive pulmonary disease) Current Visit: Yes Status: Chronic (5) Hypertension Current Visit: Yes Status: Chronic Qualifiers: Hypertension type: essential hypertension Qualified Code(s): I10 - Essential (primary) hypertension (6) H/O: CVA (cerebrovascular accident) Current Visit: Yes Status: Chronic (7) Bipolar disorder Current Visit: Yes Status: Chronic Subjective Date of service: 01/31/19 Principal diagnosis: Acute HFrEF, CMP, Pericardial effusion, COPD, Bipolar DO, HTN Interval history: He feels better today. We discussed echo findings. I have reviewed his echo. NL LV size with severe global hypokinesis, biatrial enlargement, and small to moderate pericardial effusion. Objective Vital Signs Temp Pulse Pulse Pulse Resp Resp Resp 01/31/19 15:45 01/31/19 12:40 98.3 F 96 H 01/31/19 11:00 100 H 01/31/19 10:41 100 H 01/31/19 10:39 106 H 01/31/19 10:38 106 H 01/31/19 10:00 102 H 01/31/19 08:36 100 H 18 01/31/19 08:18 99 H 18 01/31/19 08:16 20 01/31/19 08:09 98.5 F 28 H 01/31/19 08:00 01/31/19 07:58 122.0 F H 101 H 28 H 01/31/19 05:52 97.3 F L 102 H 20 01/31/19 05:15 97.3 F L 95 H 01/31/19 01:26 20 01/30/19 23:59 01/30/19 22:00 109 H 01/30/19 21:43 104 H 01/30/19 21:20 97.6 F 20 01/30/19 21:15 97.6 F 100 H 01/30/19 20:46 105 H 01/30/19 19:53 97.3 F L 104 H 01/30/19 18:21 97 H 22 BP BP BP Pulse Ox 01/31/19 15:45 01/31/19 12:40 81/51 99 01/31/19 11:00 97 01/31/19 10:41 108/80 01/31/19 10:39 108/80 01/31/19 10:38 108/80 01/31/19 10:00 01/31/19 08:36 01/31/19 08:18 01/31/19 08:16 01/31/19 08:09 108/80 01/31/19 08:00 01/31/19 07:58 96/71 97 01/31/19 05:52 102/81 96 01/31/19 05:15 95/74 96 01/31/19 01:26 01/30/19 23:59 01/30/19 22:00 01/30/19 21:43 103/73 01/30/19 21:20 103/73 01/30/19 21:15 100/73 98 01/30/19 20:46 01/30/19 19:53 94/61 99 01/30/19 18:21 108/79 100 - Physical Examination General: No Apparent Distress HEENT: Positive: EOMI, Normocephaly, Mucus Membranes Moist Neck: Positive: neck supple, trachea midline, JVD/HJR Cardiac: Positive: Reg Rate and Rhythm, S1/S2 Lungs: Positive: clear to auscultation Neuro: Positive: Grossly Intact Abdomen: Positive: Soft, Active Bowel Sounds. Negative: Tender Skin: Positive: Clear. Negative: Rash Musculoskeletal: Normal Range of Motion Extremities: Present: +2 Edema (pitting bilateral leg edema) - Imaging and Cardiology EKG: image reviewed - Telemetry EKG Rhythm: Sinus Rhythm - EKG Sinus rhythms and dysrhythmias: sinus rhythm
[2019-01-31 17:37] LABS: Lipase 26 units/L (13-60)
[2019-01-31] MEDS ORDERED: NACL 0.9% 500 ML 500 ML IV SCH (18:00)
[2019-01-31] MEDS: MELATONIN PO SCH (22:23)
[2019-02-01 05:59] LABS: INR 1.46 (0.87-1.13)
[2019-02-01 06:00] LABS: Partial Thromboplastin Time 29.7 Sec. (24.2-36.6)
[2019-02-01] MEDS: LASIX IV SCH ×2 (06:37→12:19)
--- NOTE | 2019-02-01 07:11 | Progress Note ---
Assessment and Plan Assessment and plan: Acute on chronic systolic CHF Admitted to Tele lasix iv Lisinopril Coreg Cardiology following Bipolar patient admitted here from [facility] Discussed with Psych. 1013 rescinded Hypertension Monitor BP GERD Full code status History Interval history: Shortness of breath No chest pain Hospitalist Physical - Physical exam Narrative exam: Gen: Not in acute distress, sitting up in chair HEENT: Normocephalic, atraumatic Neck: supple, no JVD Heart: S1 and S2 reg, no murmurs, rubs or gallop Lungs:Bilateral basal crackles Abd: soft, non tender, non distended, normal BS Ext: Bilateral pedal edema, no clubbing, no cyanosis Neuro:awake,alert, Oriented X 3. No focal signs - Constitutional Vitals: Temp Pulse Resp BP Pulse Ox 98.0 F 101 H 18 111/80 98 02/01/19 04:13 02/01/19 04:13 02/01/19 04:13 02/01/19 04:13 02/01/19 04:13 General appearance: Present: no acute distress Results - Labs CBC & Chem 7: 01/30/19 06:25 01/30/19 06:25 Labs: Laboratory Last Values WBC 7.5 K/mm3 (4.5-11.0) 01/30/19 06:25 RBC 4.27 M/mm3 (3.65-5.03) 01/30/19 06:25 Hgb 10.9 gm/dl (11.8-15.2) L 01/30/19 06:25 Hct 33.8 % (35.5-45.6) L 01/30/19 06:25 MCV 79 fl (84-94) L 01/30/19 06:25 MCH 26 pg (28-32) L 01/30/19 06:25 MCHC 32 % (32-34) 01/30/19 06:25 RDW 19.0 % (13.2-15.2) H 01/30/19 06:25 Plt Count 219 K/mm3 (140-440) 01/30/19 06:25 Lymph % (Auto) 30.8 % (13.4-35.0) 01/30/19 06:25 [place] % (Auto) 8.5 % (0.0-7.3) H 01/30/19 06:25 Eos % (Auto) 2.6 % (0.0-4.3) 01/30/19 06:25 Baso % (Auto) 0.2 % (0.0-1.8) 01/30/19 06:25 Lymph # 2.3 K/mm3 (1.2-5.4) 01/30/19 06:25 [place] # 0.6 K/mm3 (0.0-0.8) 01/30/19 06:25 Eos # 0.2 K/mm3 (0.0-0.4) 01/30/19 06:25 Baso # 0.0 K/mm3 (0.0-0.1) 01/30/19 06:25 Seg Neutrophils % 57.9 % (40.0-70.0) 01/30/19 06:25 Seg Neutrophils # 4.4 K/mm3 (1.8-7.7) 01/30/19 06:25 PT 17.4 Sec. (12.2-14.9) H 02/01/19 05:33 INR 1.46 (0.87-1.13) H 02/01/19 05:33 APTT 29.7 Sec. (24.2-36.6) 02/01/19 05:33 Sodium 140 mmol/L (137-145) 01/30/19 06:25 Potassium 4.4 mmol/L (3.6-5.0) 01/30/19 06:25 Chloride 99.8 mmol/L (98-107) 01/30/19 06:25 Carbon Dioxide 32 mmol/L (22-30) H 01/30/19 06:25 13 mmol/L 01/30/19 06:25 BUN 28 mg/dL (9-20) H 01/30/19 06:25 1.0 mg/dL (0.8-1.5) 01/30/19 06:25 Estimated GFR > 60 ml/min 01/30/19 06:25 28 % 01/30/19 06:25 Glucose 88 mg/dL (75-100) 01/30/19 06:25 6.0 % (4-6) 01/29/19 13:58 Calcium 8.3 mg/dL (8.4-10.2) L 01/30/19 06:25 0.60 mg/dL (0.1-1.2) 01/30/19 06:25 AST 17 units/L (5-40) 01/30/19 06:25 ALT 18 units/L (7-56) 01/30/19 06:25 94 units/L (35-129) 01/30/19 06:25 < 0.010 ng/mL (0.00-0.029) 01/29/19 13:58 NT-Pro-B Natriuret Pep 8431 pg/mL (0-900) H 01/29/19 13:58 5.5 g/dL (6.3-8.2) L 01/30/19 06:25 3.1 g/dL (3.9-5) L 01/30/19 06:25 1.3 % 01/30/19 06:25 Amylase 30 units/L (27-131) 01/31/19 16:20 26 units/L (13-60) 01/31/19 16:20 Colorless (Yellow) 01/29/19 18:10 Clear (Clear) 01/29/19 18:10 8.0 (5.0-7.0) H 01/29/19 18:10 Ur Specific [place] 1.006 (1.003-1.030) 01/29/19 18:10 <15 mg/dl mg/dL (Negative) 01/29/19 18:10 Neg mg/dL (Negative) 01/29/19 18:10 Neg mg/dL (Negative) 01/29/19 18:10 Neg (Negative) 01/29/19 18:10 Neg (Negative) 01/29/19 18:10 Neg (Negative) 01/29/19 18:10 < 2.0 mg/dL (<2.0) 01/29/19 18:10 Ur Leukocyte Esterase Neg (Negative) 01/29/19 18:10 < 1.0 /HPF (0.0-6.0) 01/29/19 18:10 1.0 /HPF (0.0-6.0) 01/29/19 18:10 Active Medications - Current Medications Current Medications: Generic Name Dose Route Start Last Admin Trade Name Freq PRN Reason Stop Dose Admin Acetaminophen 650 mg 01/29/19 21:53 Tylenol PO Q4H PRN Pain MILD(1-3)/Fever >100.5/RAUSCH Albuterol 2.5 mg 01/30/19 00:53 Proventil IH Q4HRT PRN Shortness Of Breath Albuterol 2.5 mg 01/30/19 08:00 01/31/19 20:25 Proventil IH 2.5 mg TIDRT ZULMA Administration Apixaban 5 mg 01/29/19 22:00 01/31/19 22:22 Eliquis PO 5 mg BID ZULMA Administration Protocol Carvedilol 3.125 mg 01/29/19 22:00 01/31/19 22:21 Coreg PO 3.125 mg BID ZULMA Administration Divalproex Sodium 250 mg 01/30/19 08:00 01/31/19 22:[address] PO 250 mg TID [facility] Administration Ferrous Sulfate 325 mg 01/30/19 10:00 01/31/19 10:38 Feosol PO 325 mg QAM [facility] Administration Fluoxetine HCl 20 mg 01/31/19 16:00 01/31/19 15:49 Prozac PO 20 mg QDAY [facility] Administration Furosemide 40 mg 01/30/19 06:00 02/01/19 06:37 Lasix IV Not Given 0600,1800 [facility] Hydromorphone HCl 0.5 mg 01/29/19 21:53 Dilaudid IV Q3H PRN Pain , Severe (7-10) Ibuprofen 600 mg 01/29/19 21:53 01/31/19 22:28 Ibuprofen PO 600 mg Q6H PRN Administration Pain, Mild (1-3) Lisinopril 2.5 mg 01/30/19 10:00 01/31/19 10:41 Zestril PO Not Given QAM [facility] Melatonin 5 mg 01/31/19 22:00 01/31/19 22:23 Melatonin PO 5 mg QHS [facility] Administration Ondansetron HCl 4 mg 01/29/19 21:53 Zofran IV Q8H PRN Nausea And Vomiting Pantoprazole Sodium 40 mg 01/30/19 10:00 01/31/19 10:39 Protonix PO 40 mg QAM [facility] Administration Sodium Chloride 10 ml 01/29/19 22:00 01/31/19 22:23 Sodium Chloride Flush Syringe 10 Ml IV 10 ml BID [facility]ULMA Administration Sodium Chloride 10 ml 01/29/19 21:55 Sodium Chloride Flush Syringe 10 Ml IV PRN PRN LINE FLUSH Spironolactone 12.5 mg 01/29/19 22:00 01/31/19 10:39 Aldactone PO 12.5 mg QDAY [facility]MA Administration
[2019-02-01] MEDS: PROVENTIL IH SCH ×3 (08:12→20:06)
[2019-02-01] MEDS ORDERED: HEPARIN 10,000 UNITS/10 ML ONE (10:25)
[2019-02-01] MEDS ORDERED: HEPARIN/NS 5000 UNIT/500ML(CATH LAB) 500 ML IR ONE (10:25)
[2019-02-01] MEDS ORDERED: NITROGLYCERIN SYRINGE 0 ML ONE (10:25)
[2019-02-01] MEDS ORDERED: CALAN ONE (10:25)
[2019-02-01] MEDS ORDERED: XYLOCAINE 2% INFILTRATI ONE (10:25)
--- NOTE | 2019-02-01 11:25 | Event Note ---
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 will cancel cath and medical management of non ischemic cardiomyopathy.
[2019-02-01] MEDS: ALDACTONE PO SCH (12:15)
[2019-02-01] MEDS: FEOSOL PO SCH (12:15)
[2019-02-01] MEDS: ZESTRIL PO SCH (12:15)
[2019-02-01] MEDS: PROzac PO SCH (12:15)
[2019-02-01] MEDS: COREG PO SCH ×2 (12:16→21:52)
[2019-02-01] MEDS: PROTONIX PO SCH (12:16)
[2019-02-01] MEDS: ELIQUIS PO SCH ×2 (12:19→21:53)
--- NOTE | 2019-02-01 13:39 | Progress Note ---
Assessment and Plan Assessment and plan: Acute on chronic systolic CHF Admitted to Tele lasix iv Lisinopril Coreg Cardiology following was supposed to have cardiac cath today but cancelled He feels better, less SOB Bipolar patient admitted here from [facility] Discussed with Psych. 1013 rescinded Hypertension Monitor BP GERD Full code status History Interval history: Less Shortness of breath Less leg edema No chest pain Hospitalist Physical - Physical exam Narrative exam: Gen: Not in acute distress, sitting up in chair HEENT: Normocephalic, atraumatic Neck: supple, no JVD Heart: S1 and S2 reg, no murmurs, rubs or gallop Lungs:Bilateral basal crackles Abd: soft, non tender, non distended, normal BS Ext: Bilateral pedal edema, no clubbing, no cyanosis Neuro: Awake,alert, Oriented X 3. No focal signs - Constitutional Vitals: Temp Pulse Resp BP Pulse Ox 98.3 F 102 H 18 112/81 98 02/01/19 12:39 02/01/19 12:39 02/01/19 12:39 02/01/19 12:39 02/01/19 12:39 General appearance: Present: no acute distress Results - Labs CBC & Chem 7: 01/30/19 06:25 01/30/19 06:25 Labs: Laboratory Last Values WBC 7.5 K/mm3 (4.5-11.0) 01/30/19 06:25 RBC 4.27 M/mm3 (3.65-5.03) 01/30/19 06:25 Hgb 10.9 gm/dl (11.8-15.2) L 01/30/19 06:25 Hct 33.8 % (35.5-45.6) L 01/30/19 06:25 MCV 79 fl (84-94) L 01/30/19 06:25 MCH 26 pg (28-32) L 01/30/19 06:25 MCHC 32 % (32-34) 01/30/19 06:25 RDW 19.0 % (13.2-15.2) H 01/30/19 06:25 Plt Count 219 K/mm3 (140-440) 01/30/19 06:25 Lymph % (Auto) 30.8 % (13.4-35.0) 01/30/19 06:25 [place] % (Auto) 8.5 % (0.0-7.3) H 01/30/19 06:25 Eos % (Auto) 2.6 % (0.0-4.3) 01/30/19 06:25 Baso % (Auto) 0.2 % (0.0-1.8) 01/30/19 06:25 Lymph # 2.3 K/mm3 (1.2-5.4) 01/30/19 06:25 [place] # 0.6 K/mm3 (0.0-0.8) 01/30/19 06:25 Eos # 0.2 K/mm3 (0.0-0.4) 01/30/19 06:25 Baso # 0.0 K/mm3 (0.0-0.1) 01/30/19 06:25 Seg Neutrophils % 57.9 % (40.0-70.0) 01/30/19 06:25 Seg Neutrophils # 4.4 K/mm3 (1.8-7.7) 01/30/19 06:25 PT 17.4 Sec. (12.2-14.9) H 02/01/19 05:33 INR 1.46 (0.87-1.13) H 02/01/19 05:33 APTT 29.7 Sec. (24.2-36.6) 02/01/19 05:33 Sodium 140 mmol/L (137-145) 01/30/19 06:25 Potassium 4.4 mmol/L (3.6-5.0) 01/30/19 06:25 Chloride 99.8 mmol/L (98-107) 01/30/19 06:25 Carbon Dioxide 32 mmol/L (22-30) H 01/30/19 06:25 13 mmol/L 01/30/19 06:25 BUN 28 mg/dL (9-20) H 01/30/19 06:25 1.0 mg/dL (0.8-1.5) 01/30/19 06:25 Estimated GFR > 60 ml/min 01/30/19 06:25 28 % 01/30/19 06:25 Glucose 88 mg/dL (75-100) 01/30/19 06:25 POC Glucose 135 (70-105) H 02/01/19 05:35 6.0 % (4-6) 01/29/19 13:58 Calcium 8.3 mg/dL (8.4-10.2) L 01/30/19 06:25 0.60 mg/dL (0.1-1.2) 01/30/19 06:25 AST 17 units/L (5-40) 01/30/19 06:25 ALT 18 units/L (7-56) 01/30/19 06:25 94 units/L (35-129) 01/30/19 06:25 < 0.010 ng/mL (0.00-0.029) 01/29/19 13:58 NT-Pro-B Natriuret Pep 8431 pg/mL (0-900) H 01/29/19 13:58 5.5 g/dL (6.3-8.2) L 01/30/19 06:25 3.1 g/dL (3.9-5) L 01/30/19 06:25 1.3 % 01/30/19 06:25 Amylase 30 units/L (27-131) 01/31/19 16:20 26 units/L (13-60) 01/31/19 16:20 Colorless (Yellow) 01/29/19 18:10 Clear (Clear) 01/29/19 18:10 8.0 (5.0-7.0) H 01/29/19 18:10 Ur Specific [place] 1.006 (1.003-1.030) 01/29/19 18:10 <15 mg/dl mg/dL (Negative) 01/29/19 18:10 Neg mg/dL (Negative) 01/29/19 18:10 Neg mg/dL (Negative) 01/29/19 18:10 Neg (Negative) 01/29/19 18:10 Neg (Negative) 01/29/19 18:10 Neg (Negative) 01/29/19 18:10 < 2.0 mg/dL (<2.0) 01/29/19 18:10 Ur Leukocyte Esterase Neg (Negative) 01/29/19 18:10 < 1.0 /HPF (0.0-6.0) 01/29/19 18:10 1.0 /HPF (0.0-6.0) 01/29/19 18:10 Valproic Acid 51.6 ug/mL (50-100) 02/01/19 09:54 Active Medications - Current Medications Current Medications: Generic Name Dose Route Start Last Admin Trade Name Freq PRN Reason Stop Dose Admin Acetaminophen 650 mg 01/29/19 21:53 Tylenol PO Q4H PRN Pain MILD(1-3)/Fever >100.5/RAUSCH Albuterol 2.5 mg 01/30/19 00:53 Proventil IH Q4HRT PRN Shortness Of Breath Albuterol 2.5 mg 01/30/19 08:00 02/01/19 13:03 Proventil IH 2.5 mg TIDRT ZULMA Administration Apixaban 5 mg 01/29/19 22:00 02/01/19 12:19 Eliquis PO 5 mg BID ZULMA Administration Protocol Carvedilol 3.125 mg 01/29/19 22:00 02/01/19 12:16 Coreg PO 3.125 mg BID ZULMA Administration Digoxin 0.25 mg 02/01/19 10:00 Lanoxin PO 02/02/19 04:01 Q6H ZULMA Divalproex Sodium 250 mg 01/30/19 08:00 02/01/19 12:[address] PO 250 mg TID ZULMA Administration Ferrous Sulfate 325 mg 01/30/19 10:00 02/01/19 12:15 Feosol PO 325 mg QAM ZULMA Administration Fluoxetine HCl 20 mg 01/31/19 16:00 02/01/19 12:15 Prozac PO 20 mg QDAY ZULMA Administration Furosemide 40 mg 01/30/19 06:00 02/01/19 12:19 Lasix IV Not Given 0600,1800 [facility] Hydromorphone HCl 0.5 mg 01/29/19 21:53 Dilaudid IV Q3H PRN Pain , Severe (7-10) Ibuprofen 600 mg 01/29/19 21:53 01/31/19 22:28 Ibuprofen PO 600 mg Q6H PRN Administration Pain, Mild (1-3) Lisinopril 2.5 mg 01/30/19 10:00 02/01/19 12:15 Zestril PO 2.5 mg QAM ZULMA Administration Melatonin 5 mg 01/31/19 22:00 01/31/19 22:23 Melatonin PO 5 mg QHS ZULMA Administration Ondansetron HCl 4 mg 07/16/19 21:53 Zofran IV Q8H PRN Nausea And Vomiting Pantoprazole Sodium 40 mg 01/30/19 10:00 02/01/19 12:16 Protonix PO 40 mg QAM ZULMA Administration Sodium Chloride 10 ml 01/29/19 22:00 01/31/19 22:23 Sodium Chloride Flush Syringe 10 Ml IV 10 ml BID ZULMA Administration Sodium Chloride 10 ml 01/29/19 21:55 Sodium Chloride Flush Syringe 10 Ml IV PRN PRN LINE FLUSH Spironolactone 12.5 mg 01/29/19 22:00 02/01/19 12:15 Aldactone PO 12.5 mg QDAY ZULMA Administration
--- NOTE | 2019-02-01 14:08 | Progress Note ---
Subjective - Reason for Consult Consult date: 02/01/19 Reason for consult: Psychiatry Follow-up - Chief Complaint Chief complaint: "'m well today" 53 y.o. white male who presnted to the ER from [place] for SOB and swelling in his scrotum/lower extremities. Today the patient was calm and cooperative during the assessment. He stated that he will probably be discharged on Monday. He stated that he will follow up with the [place] for outpatient psy services. He denies SI/HI's and AVH's. He denies any side effects from his medication. Mental Status Exam - Vital signs Last Vital Signs Temp 98.3 F 02/01/19 12:39 Pulse 102 H 02/01/19 12:39 Resp 18 02/01/19 12:39 BP 112/81 02/01/19 12:39 Pulse Ox 98 02/01/19 12:39 - Exam Narrative exam: MSE: Appearance: calm, cooperative Behavior: regular eye contact Speech: regular rate and tone Mood: "okay" Affect: congruent to mood Thought Process: linear Thought Content: denies SI/HI's and AVH's Motor Activity: sitting up in bed Cognition: A/O x3 Insight: appropriate Judgment: appropriate Assessment and Plan Impression: PTSD. Insomnia. Today the patient was calm and cooperative during the assessment. The patient's is no threat to self. DDx: R/O MDD Recommendation/Plan: Rescind 1013. Start Prozac 20 mg PO daily for PTSD and Melatonin 5 mg PO HS for sleep. Discussed possible suicidality/medication induced rangel with the patient reference Prozac, he verbalized understanding. Psy sign off. Dispo: The patient can follow up with [facility] or the [place] for outpatient psy services. Will staff with Dr Monica Meier.
--- NOTE | 2019-02-01 15:22 | Progress Note ---
Assessment and Plan Continue mgt. Needs lifevest sent from [facility]. Add Digoxin. - Patient Problems (1) Acute HFrEF (heart failure with reduced ejection fraction) Current Visit: Yes Status: Acute (2) Cardiomyopathy Current Visit: Yes Status: Acute (3) Pericardial effusion Current Visit: Yes Status: Acute (4) COPD (chronic obstructive pulmonary disease) Current Visit: Yes Status: Chronic (5) Hypertension Current Visit: Yes Status: Chronic Qualifiers: Hypertension type: essential hypertension Qualified Code(s): I10 - Essential (primary) hypertension (6) H/O: CVA (cerebrovascular accident) Current Visit: Yes Status: Chronic (7) Bipolar disorder Current Visit: Yes Status: Chronic Subjective Date of service: 02/01/19 Principal diagnosis: Acute HFrEF, CMP, Pericardial effusion, COPD, Bipolar DO, HTN Interval history: He claims that he has a lifevest at the police [facility] in [facility] which they promised to send over for him. He needs to have a lifevest. Objective Vital Signs Temp Pulse Pulse Resp Resp BP Pulse Ox 02/01/19 13:03 97 H 20 02/01/19 12:39 98.3 F 102 H 18 112/81 98 02/01/19 08:42 103 H 02/01/19 08:12 101 H 20 02/01/19 04:13 98.0 F 101 H 18 111/80 98 01/31/19 23:37 98.0 F 100 H 20 91/56 94 01/31/19 22:28 20 01/31/19 22:21 104 H 106/77 01/31/19 22:00 98 H 01/31/19 20:32 103 H 18 01/31/19 19:46 98.0 F 108 H 18 106/77 99 01/31/19 16:34 97.8 F 90 20 99/74 94 01/31/19 15:45 20 - Physical Examination General: No Apparent Distress HEENT: Positive: EOMI, Normocephaly, Mucus Membranes Moist Neck: Positive: neck supple, trachea midline, JVD/HJR Cardiac: Positive: Reg Rate and Rhythm, S1/S2 Lungs: Positive: clear to auscultation Neuro: Positive: Grossly Intact Abdomen: Positive: Soft, Active Bowel Sounds. Negative: Tender Skin: Positive: Clear. Negative: Rash Musculoskeletal: Normal Range of Motion Extremities: Present: +2 Edema (pitting bilateral leg edema) - Labs and Meds Coagulation 02/01/19 Range/Units 05:33 PT 17.4 H (12.2-14.9) Sec. INR 1.46 H (0.87-1.13) APTT 29.7 (24.2-36.6) Sec. - Imaging and Cardiology EKG: image reviewed - EKG Sinus rhythms and dysrhythmias: sinus rhythm
[2019-02-01] MEDS: SODIUM CHLORIDE FLUSH SYRINGE 10 ML IV SCH ×2 (19:02→21:54)
[2019-02-01] MEDS: LANOXIN PO SCH ×2 (19:02→21:51)
[2019-02-01] MEDS: MELATONIN PO SCH (21:53)
[2019-02-01] MEDS: IBUPROFEN PO PRN (21:53)
[2019-02-02] MEDS: LANOXIN PO SCH (05:06)
[2019-02-02] MEDS: LASIX IV SCH ×3 (05:06→17:58)
[2019-02-02] MEDS: IBUPROFEN PO PRN (05:26)
--- NOTE | 2019-02-02 09:45 | Progress Note ---
Assessment and Plan Assessment and plan: Acute on chronic systolic CHF Admitted to Tele lasix iv Lisinopril Coreg Cardiology following He feels better, less SOB He states he had a life vest which he states is somewhere in [facility]. case management working to get it Bipolar patient admitted here from [facility] Discussed with Psych. 1013 rescinded Hypertension Monitor BP GERD Full code status History Interval history: Less Shortness of breath Less leg edema No chest pain Hospitalist Physical - Physical exam Narrative exam: Gen: Not in acute distress, sitting up in chair HEENT: Normocephalic, atraumatic Neck: supple, no JVD Heart: S1 and S2 reg, no murmurs, rubs or gallop Lungs:Bilateral basal crackles, no wheeze Abd: soft, non tender, non distended, normal BS Ext: Bilateral pedal edema, no clubbing, no cyanosis Neuro: Awake,alert, Oriented X 3. No focal signs - Constitutional Vitals: Temp Pulse Resp BP Pulse Ox 97.6 F 102 H 20 113/85 100 02/02/19 04:49 02/02/19 05:08 02/02/19 04:49 02/02/19 05:06 02/02/19 05:08 General appearance: Present: no acute distress Results - Labs CBC & Chem 7: 01/30/19 06:25 02/02/19 09:48 Labs: Laboratory Last Values WBC 7.5 K/mm3 (4.5-11.0) 01/30/19 06:25 RBC 4.27 M/mm3 (3.65-5.03) 01/30/19 06:25 Hgb 10.9 gm/dl (11.8-15.2) L 01/30/19 06:25 Hct 33.8 % (35.5-45.6) L 01/30/19 06:25 MCV 79 fl (84-94) L 01/30/19 06:25 MCH 26 pg (28-32) L 01/30/19 06:25 MCHC 32 % (32-34) 01/30/19 06:25 RDW 19.0 % (13.2-15.2) H 01/30/19 06:25 Plt Count 219 K/mm3 (140-440) 01/30/19 06:25 Lymph % (Auto) 30.8 % (13.4-35.0) 01/30/19 06:25 [place] % (Auto) 8.5 % (0.0-7.3) H 01/30/19 06:25 Eos % (Auto) 2.6 % (0.0-4.3) 01/30/19 06:25 Baso % (Auto) 0.2 % (0.0-1.8) 01/30/19 06:25 Lymph # 2.3 K/mm3 (1.2-5.4) 01/30/19 06:25 [place] # 0.6 K/mm3 (0.0-0.8) 01/30/19 06:25 Eos # 0.2 K/mm3 (0.0-0.4) 01/30/19 06:25 Baso # 0.0 K/mm3 (0.0-0.1) 01/30/19 06:25 Seg Neutrophils % 57.9 % (40.0-70.0) 01/30/19 06:25 Seg Neutrophils # 4.4 K/mm3 (1.8-7.7) 01/30/19 06:25 PT 17.4 Sec. (12.2-14.9) H 02/01/19 05:33 INR 1.46 (0.87-1.13) H 02/01/19 05:33 APTT 29.7 Sec. (24.2-36.6) 02/01/19 05:33 Sodium 140 mmol/L (137-145) 01/30/19 06:25 Potassium 4.4 mmol/L (3.6-5.0) 01/30/19 06:25 Chloride 99.8 mmol/L (98-107) 01/30/19 06:25 Carbon Dioxide 32 mmol/L (22-30) H 01/30/19 06:25 13 mmol/L 01/30/19 06:25 BUN 28 mg/dL (9-20) H 01/30/19 06:25 1.0 mg/dL (0.8-1.5) 01/30/19 06:25 Estimated GFR > 60 ml/min 01/30/19 06:25 28 % 01/30/19 06:25 Glucose 88 mg/dL (75-100) 01/30/19 06:25 POC Glucose 135 (70-105) H 02/01/19 05:35 6.0 % (4-6) 01/29/19 13:58 Calcium 8.3 mg/dL (8.4-10.2) L 01/30/19 06:25 0.60 mg/dL (0.1-1.2) 01/30/19 06:25 AST 17 units/L (5-40) 01/30/19 06:25 ALT 18 units/L (7-56) 01/30/19 06:25 94 units/L (35-129) 01/30/19 06:25 < 0.010 ng/mL (0.00-0.029) 01/29/19 13:58 NT-Pro-B Natriuret Pep 8431 pg/mL (0-900) H 01/29/19 13:58 5.5 g/dL (6.3-8.2) L 01/30/19 06:25 3.1 g/dL (3.9-5) L 01/30/19 06:25 1.3 % 01/30/19 06:25 Amylase 30 units/L (27-131) 01/31/19 16:20 26 units/L (13-60) 01/31/19 16:20 Colorless (Yellow) 01/29/19 18:10 Clear (Clear) 01/29/19 18:10 8.0 (5.0-7.0) H 01/29/19 18:10 Ur Specific [place] 1.006 (1.003-1.030) 01/29/19 18:10 <15 mg/dl mg/dL (Negative) 01/29/19 18:10 Neg mg/dL (Negative) 01/29/19 18:10 Neg mg/dL (Negative) 01/29/19 18:10 Neg (Negative) 01/29/19 18:10 Neg (Negative) 01/29/19 18:10 Neg (Negative) 01/29/19 18:10 < 2.0 mg/dL (<2.0) 01/29/19 18:10 Ur Leukocyte Esterase Neg (Negative) 01/29/19 18:10 < 1.0 /HPF (0.0-6.0) 01/29/19 18:10 1.0 /HPF (0.0-6.0) 01/29/19 18:10 Digoxin 0.3 ng/mL (0.9-2.0) L 02/02/19 05:10 Valproic Acid 51.6 ug/mL (50-100) 02/01/19 09:54 Active Medications - Current Medications Current Medications: Generic Name Dose Route Start Last Admin Trade Name Freq PRN Reason Stop Dose Admin Acetaminophen 650 mg 01/29/19 21:53 Tylenol PO Q4H PRN Pain MILD(1-3)/Fever >100.5/RAUSCH Albuterol 2.5 mg 01/30/19 00:53 Proventil IH Q4HRT PRN Shortness Of Breath Albuterol 2.5 mg 01/30/19 08:00 02/01/19 20:06 Proventil IH 2.5 mg TIDRT ZULMA Administration Apixaban 5 mg 01/29/19 22:00 02/01/19 21:53 Eliquis PO 5 mg BID ZULMA Administration Protocol Carvedilol 3.125 mg 01/29/19 22:00 02/01/19 21:52 Coreg PO 3.125 mg BID ZULMA Administration Divalproex Sodium 250 mg 01/30/19 08:00 02/01/19 21:[address] PO 250 mg TID ZULMA Administration Ferrous Sulfate 325 mg 01/30/19 10:00 02/01/19 12:15 Feosol PO 325 mg QAM ZULMA Administration Fluoxetine HCl 20 mg 01/31/19 16:00 02/01/19 12:15 Prozac PO 20 mg QDAY ZULMA Administration Furosemide 40 mg 01/30/19 06:00 02/02/19 05:06 Lasix IV 40 mg 0600,1800 ZULMA Administration Hydromorphone HCl 0.5 mg 01/29/19 21:53 Dilaudid IV Q3H PRN Pain , Severe (7-10) Ibuprofen 600 mg 01/29/19 21:53 02/02/19 05:26 Ibuprofen PO 600 mg Q6H PRN Administration Pain, Mild (1-3) Lisinopril 2.5 mg 01/30/19 10:00 02/01/19 12:15 Zestril PO 2.5 mg QAM ZULMA Administration Melatonin 5 mg 01/31/19 22:00 02/01/19 21:53 Melatonin PO 5 mg QHS ZULMA Administration Ondansetron HCl 4 mg 01/29/19 21:53 Zofran IV Q8H PRN Nausea And Vomiting Pantoprazole Sodium 40 mg 01/30/19 10:00 02/01/19 12:16 Protonix PO 40 mg QAM ZULMA Administration Sodium Chloride 10 ml 01/29/19 22:00 02/01/19 21:54 Sodium Chloride Flush Syringe 10 Ml IV 10 ml BID ZULMA Administration Sodium Chloride 10 ml 01/29/19 21:55 Sodium Chloride Flush Syringe 10 Ml IV PRN PRN LINE FLUSH Spironolactone 12.5 mg 01/29/19 22:00 02/01/19 12:15 Aldactone PO 12.5 mg QDAY ZULMA Administration
[2019-02-02] MEDS: PROVENTIL IH SCH ×3 (10:04→20:30)
[2019-02-02 10:23] LABS: BUN/Creatinine Ratio 29; Blood Urea Nitrogen 35 mg/dL (9-20); Calcium 8.8 mg/dL (8.4-10.2); Hemolysis Index 10
[2019-02-02] MEDS: ELIQUIS PO SCH ×2 (11:03→22:45)
[2019-02-02] MEDS: COREG PO SCH ×2 (11:04→22:48)
[2019-02-02] MEDS: ZESTRIL PO SCH (11:04)
[2019-02-02] MEDS: PROzac PO SCH (11:04)
[2019-02-02] MEDS: FEOSOL PO SCH (11:04)
[2019-02-02] MEDS: ALDACTONE PO SCH (11:04)
[2019-02-02] MEDS: PROTONIX PO SCH ×2 (11:04→22:48)
[2019-02-02] MEDS: SODIUM CHLORIDE FLUSH SYRINGE 10 ML IV SCH ×2 (11:05→22:50)
--- NOTE | 2019-02-02 12:26 | Progress Note ---
Assessment and Plan Rx additional Digoxin doses today due to tachycardia. He claims that he already has a lifevest with the police dept in [facility], and that they promised to send it down. He needs a lifevest. Will probably be ready for DC in am otherwise. - Patient Problems (1) Acute HFrEF (heart failure with reduced ejection fraction) Current Visit: Yes Status: Acute (2) Cardiomyopathy Current Visit: Yes Status: Acute (3) Pericardial effusion Current Visit: Yes Status: Acute (4) COPD (chronic obstructive pulmonary disease) Current Visit: Yes Status: Chronic (5) Hypertension Current Visit: Yes Status: Chronic Qualifiers: Hypertension type: essential hypertension Qualified Code(s): I10 - Essential (primary) hypertension (6) H/O: CVA (cerebrovascular accident) Current Visit: Yes Status: Chronic (7) Bipolar disorder Current Visit: Yes Status: Chronic Subjective Date of service: 02/02/19 Principal diagnosis: Acute HFrEF, CMP, Pericardial effusion, COPD, Bipolar DO, HTN Interval history: No complaint. Objective Vital Signs Temp Pulse Pulse Resp Resp BP BP 02/02/19 10:04 96 H 19 02/02/19 05:08 102 H 02/02/19 05:06 102 H 113/85 02/02/19 04:49 97.6 F 20 113/85 02/01/19 23:51 98.4 F 101 H 18 02/01/19 22:00 96 H 02/01/19 21:53 20 02/01/19 21:52 120 H 102/74 02/01/19 21:51 120 H 102/74 02/01/19 20:13 98.3 F 94 H 22 102/74 02/01/19 20:12 101 H 18 02/01/19 13:03 97 H 20 02/01/19 12:39 98.3 F 102 H 18 112/81 BP Pulse Ox 02/02/19 10:04 02/02/19 05:08 100 02/02/19 05:06 02/02/19 04:49 02/01/19 23:51 110/86 100 02/01/19 22:00 02/01/19 21:53 02/01/19 21:52 02/01/19 21:51 02/01/19 20:13 02/01/19 20:12 02/01/19 13:03 02/01/19 12:39 98 - Physical Examination General: No Apparent Distress HEENT: Positive: EOMI, Normocephaly, Mucus Membranes Moist Neck: Positive: neck supple, trachea midline, JVD/HJR Cardiac: Positive: Reg Rate and Rhythm, S1/S2 Lungs: Positive: clear to auscultation Neuro: Positive: Grossly Intact Abdomen: Positive: Soft, Active Bowel Sounds. Negative: Tender Skin: Positive: Clear. Negative: Rash Musculoskeletal: Normal Range of Motion Extremities: Present: +2 Edema (pitting bilateral leg edema) - Labs and Meds Comprehensive Metabolic Panel 02/02/19 Range/Units 09:48 Sodium 140 (137-145) mmol/L Potassium 4.9 (3.6-5.0) mmol/L Chloride 98.3 (98-107) mmol/L Carbon Dioxide 28 (22-30) mmol/L BUN 35 H (9-20) mg/dL Creatinine 1.2 (0.8-1.5) mg/dL Glucose 134 H (75-100) mg/dL Calcium 8.8 (8.4-10.2) mg/dL - Imaging and Cardiology EKG: image reviewed - Telemetry EKG Rhythm: Sinus Tachycardia - EKG Sinus rhythms and dysrhythmias: sinus rhythm
[2019-02-02] MEDS ORDERED: LANOXIN PO ONE (13:00)
[2019-02-02] MEDS ORDERED: PROTONIX IV SCH (19:00)
[2019-02-02] MEDS: MELATONIN PO SCH (22:45)
[2019-02-03] MEDS: TYLENOL PO PRN (01:32)
[2019-02-03 06:22] LABS: Hematocrit 33.6 % (35.5-45.6); Hemoglobin 10.9 gm/dl (11.8-15.2)
[2019-02-03] MEDS: LASIX IV SCH ×2 (06:31→17:26)
[2019-02-03] MEDS ORDERED: LANOXIN PO ONE (08:00)
[2019-02-03] MEDS: PROVENTIL IH SCH ×3 (08:38→20:48)
--- NOTE | 2019-02-03 09:00 | Progress Note ---
Assessment and Plan Assessment and plan: Acute on chronic systolic CHF Admitted to Tele lasix iv Lisinopril Coreg Cardiology following He feels better, less SOB He states he had a life vest which he states is somewhere in [facility]. Case management working to get it Bipolar patient admitted here from [facility] Discussed with Psych. 1013 rescinded Hypertension Monitor BP GERD Full code status Medically stable for discharge Awaiting lifevest and placement assistance. History Interval history: Less Shortness of breath Less leg edema No chest pain Hospitalist Physical - Physical exam Narrative exam: Gen: Not in acute distress, sitting up in chair HEENT: Normocephalic, atraumatic Neck: supple, no JVD Heart: S1 and S2 reg, no murmurs, rubs or gallop Lungs:Bilateral basal crackles, no wheeze Abd: soft, non tender, non distended, normal BS Ext: Bilateral pedal edema, no clubbing, no cyanosis Neuro: Awake,alert, Oriented X 3. No focal signs - Constitutional Vitals: Temp Pulse Resp BP Pulse Ox 98.8 F 96 H 16 111/74 96 02/03/19 04:00 02/03/19 04:00 02/03/19 04:00 02/03/19 04:00 02/03/19 04:00 General appearance: Present: no acute distress Results - Labs CBC & Chem 7: 02/03/19 05:04 02/02/19 09:48 Labs: Laboratory Last Values WBC 7.5 K/mm3 (4.5-11.0) 01/30/19 06:25 RBC 4.27 M/mm3 (3.65-5.03) 01/30/19 06:25 Hgb 10.9 gm/dl (11.8-15.2) L 02/03/19 05:04 Hct 33.6 % (35.5-45.6) L 02/03/19 05:04 MCV 79 fl (84-94) L 01/30/19 06:25 MCH 26 pg (28-32) L 01/30/19 06:25 MCHC 32 % (32-34) 01/30/19 06:25 RDW 19.0 % (13.2-15.2) H 01/30/19 06:25 Plt Count 219 K/mm3 (140-440) 01/30/19 06:25 Lymph % (Auto) 30.8 % (13.4-35.0) 01/30/19 06:25 [place] % (Auto) 8.5 % (0.0-7.3) H 01/30/19 06:25 Eos % (Auto) 2.6 % (0.0-4.3) 01/30/19 06:25 Baso % (Auto) 0.2 % (0.0-1.8) 01/30/19 06:25 Lymph # 2.3 K/mm3 (1.2-5.4) 01/30/19 06:25 [place] # 0.6 K/mm3 (0.0-0.8) 01/30/19 06:25 Eos # 0.2 K/mm3 (0.0-0.4) 01/30/19 06:25 Baso # 0.0 K/mm3 (0.0-0.1) 01/30/19 06:25 Seg Neutrophils % 57.9 % (40.0-70.0) 01/30/19 06:25 Seg Neutrophils # 4.4 K/mm3 (1.8-7.7) 01/30/19 06:25 PT 17.4 Sec. (12.2-14.9) H 02/01/19 05:33 INR 1.46 (0.87-1.13) H 02/01/19 05:33 APTT 29.7 Sec. (24.2-36.6) 02/01/19 05:33 Sodium 140 mmol/L (137-145) 02/02/19 09:48 Potassium 4.9 mmol/L (3.6-5.0) 02/02/19 09:48 Chloride 98.3 mmol/L (98-107) 02/02/19 09:48 Carbon Dioxide 28 mmol/L (22-30) 02/02/19 09:48 19 mmol/L 02/02/19 09:48 BUN 35 mg/dL (9-20) H 02/02/19 09:48 1.2 mg/dL (0.8-1.5) 02/02/19 09:48 Estimated GFR > 60 ml/min 02/02/19 09:48 29 % 02/02/19 09:48 Glucose 134 mg/dL (75-100) H 02/02/19 09:48 POC Glucose 135 (70-105) H 02/01/19 05:35 6.0 % (4-6) 01/29/19 13:58 Calcium 8.8 mg/dL (8.4-10.2) 02/02/19 09:48 0.60 mg/dL (0.1-1.2) 01/30/19 06:25 AST 17 units/L (5-40) 01/30/19 06:25 ALT 18 units/L (7-56) 01/30/19 06:25 94 units/L (35-129) 01/30/19 06:25 < 0.010 ng/mL (0.00-0.029) 01/29/19 13:58 NT-Pro-B Natriuret Pep 8431 pg/mL (0-900) H 01/29/19 13:58 5.5 g/dL (6.3-8.2) L 01/30/19 06:25 3.1 g/dL (3.9-5) L 01/30/19 06:25 1.3 % 01/30/19 06:25 Amylase 30 units/L (27-131) 01/31/19 16:20 26 units/L (13-60) 01/31/19 16:20 Colorless (Yellow) 01/29/19 18:10 Clear (Clear) 01/29/19 18:10 8.0 (5.0-7.0) H 01/29/19 18:10 Ur Specific [place] 1.006 (1.003-1.030) 01/29/19 18:10 <15 mg/dl mg/dL (Negative) 01/29/19 18:10 Neg mg/dL (Negative) 01/29/19 18:10 Neg mg/dL (Negative) 01/29/19 18:10 Neg (Negative) 01/29/19 18:10 Neg (Negative) 01/29/19 18:10 Neg (Negative) 01/29/19 18:10 < 2.0 mg/dL (<2.0) 01/29/19 18:10 Ur Leukocyte Esterase Neg (Negative) 01/29/19 18:10 < 1.0 /HPF (0.0-6.0) 01/29/19 18:10 1.0 /HPF (0.0-6.0) 01/29/19 18:10 Digoxin 0.3 ng/mL (0.9-2.0) L 02/02/19 05:10 Valproic Acid 51.6 ug/mL (50-100) 02/01/19 09:54 Active Medications - Current Medications Current Medications: Generic Name Dose Route Start Last Admin Trade Name Freq PRN Reason Stop Dose Admin Acetaminophen 650 mg 01/29/19 21:53 02/03/19 01:32 Tylenol PO 650 mg Q4H PRN Administration Pain MILD(1-3)/Fever >100.5/RAUSCH Albuterol 2.5 mg 01/30/19 00:53 Proventil IH Q4HRT PRN Shortness Of Breath Albuterol 2.5 mg 01/30/19 08:00 02/03/19 08:38 Proventil IH 2.5 mg TIDRT ZULMA Administration Apixaban 5 mg 01/29/19 22:00 02/02/19 22:45 Eliquis PO 5 mg BID ZULMA Administration Protocol Carvedilol 3.125 mg 01/29/19 22:00 02/02/19 22:48 Coreg PO 3.125 mg BID ZULMA Administration Divalproex Sodium 250 mg 01/30/19 08:00 02/02/19 22:[address] PO 250 mg TID ZULMA Administration Ferrous Sulfate 325 mg 01/30/19 10:00 02/02/19 11:04 Feosol PO 325 mg QAM ZULMA Administration Fluoxetine HCl 20 mg 01/31/19 16:00 02/02/19 11:04 Prozac PO 20 mg QDAY ZULMA Administration Furosemide 40 mg 01/30/19 06:00 02/03/19 06:31 Lasix IV 40 mg 0600,1800 ZULMA Administration Hydromorphone HCl 0.5 mg 01/29/19 21:53 Dilaudid IV Q3H PRN Pain , Severe (7-10) Lisinopril 2.5 mg 01/30/19 10:00 02/02/19 11:04 Zestril PO 2.5 mg QAM ZULMA Administration Melatonin 5 mg 01/31/19 22:00 02/02/19 22:45 Melatonin PO 5 mg QHS ZULMA Administration Ondansetron HCl 4 mg 01/29/19 21:53 Zofran IV Q8H PRN Nausea And Vomiting Pantoprazole Sodium 40 mg 02/02/19 22:00 02/02/19 22:48 Protonix PO 40 mg BID ZULMA Administration Sodium Chloride 10 ml 01/29/19 22:00 02/02/19 22:50 Sodium Chloride Flush Syringe 10 Ml IV 10 ml BID ZULMA Administration Sodium Chloride 10 ml 01/29/19 21:55 Sodium Chloride Flush Syringe 10 Ml IV PRN PRN LINE FLUSH Spironolactone 12.5 mg 01/29/19 22:00 02/02/19 11:04 Aldactone PO 12.5 mg QDAY ZULMA Administration
[2019-02-03] MEDS: ELIQUIS PO SCH ×2 (10:31→22:43)
[2019-02-03] MEDS: ALDACTONE PO SCH (10:31)
[2019-02-03] MEDS: LANOXIN PO SCH (10:31)
[2019-02-03] MEDS: PROTONIX PO SCH ×2 (10:31→22:43)
[2019-02-03] MEDS: FEOSOL PO SCH (10:31)
[2019-02-03] MEDS: COREG PO SCH ×2 (10:31→22:42)
[2019-02-03] MEDS: ZESTRIL PO SCH (10:32)
[2019-02-03] MEDS: PROzac PO SCH (10:32)
[2019-02-03] MEDS: SODIUM CHLORIDE FLUSH SYRINGE 10 ML IV SCH ×2 (10:32→22:44)
--- NOTE | 2019-02-03 12:18 | Progress Note ---
Assessment and Plan Cardiac status is stable enough for DC on oral diuretics. The only issue is that he needs a lifevest prior to DC. - Patient Problems (1) Acute HFrEF (heart failure with reduced ejection fraction) Current Visit: Yes Status: Acute (2) Cardiomyopathy Current Visit: Yes Status: Acute (3) NSVT (nonsustained ventricular tachycardia) Current Visit: Yes Status: Acute (4) Pericardial effusion Current Visit: Yes Status: Acute (5) COPD (chronic obstructive pulmonary disease) Current Visit: Yes Status: Chronic (6) Hypertension Current Visit: Yes Status: Chronic Qualifiers: Hypertension type: essential hypertension Qualified Code(s): I10 - Essential (primary) hypertension (7) H/O: CVA (cerebrovascular accident) Current Visit: Yes Status: Chronic (8) Bipolar disorder Current Visit: Yes Status: Chronic Subjective Date of service: 02/03/19 Principal diagnosis: Acute HFrEF, CMP, Pericardial effusion, COPD, Bipolar DO, HTN Interval history: No new complaint. Objective Vital Signs Temp Pulse Pulse Pulse Resp Resp BP 02/03/19 04:00 98.8 F 96 H 16 02/02/19 23:40 97.4 F L 95 H 16 117/78 02/02/19 22:48 93 H 103/78 02/02/19 22:00 95 H 87 02/02/19 20:31 88 18 02/02/19 19:35 97.4 F L 66 16 103/78 02/02/19 17:26 82 18 BP Pulse Ox 02/03/19 04:00 111/74 96 02/02/19 23:40 100 02/02/19 22:48 02/02/19 22:00 98 02/02/19 20:31 02/02/19 19:35 98 02/02/19 17:26 - Physical Examination General: No Apparent Distress HEENT: Positive: EOMI, Normocephaly, Mucus Membranes Moist Neck: Positive: neck supple, trachea midline, JVD/HJR Cardiac: Positive: Reg Rate and Rhythm Lungs: Positive: clear to auscultation Neuro: Positive: Grossly Intact Abdomen: Positive: Soft, Active Bowel Sounds. Negative: Tender Skin: Positive: Clear. Negative: Rash Musculoskeletal: Normal Range of Motion Extremities: Present: +2 Edema (pitting bilateral leg edema) - Labs and Meds CBC 07/21/19 Range/Units 05:04 Hgb 10.9 L (11.8-15.2) gm/dl Hct 33.6 L (35.5-45.6) % - Imaging and Cardiology EKG: image reviewed - Telemetry EKG Rhythm: Sinus Rhythm - EKG Sinus rhythms and dysrhythmias: sinus rhythm Ventricular dysrhythmias: non-sustained ventricular
[2019-02-03] MEDS: MELATONIN PO SCH (22:42)
[2019-02-04] MEDS: LASIX IV SCH (06:25)
[2019-02-04] MEDS: PROVENTIL IH SCH ×3 (07:50→20:11)
[2019-02-04] MEDS: TYLENOL PO PRN (08:57)
[2019-02-04] MEDS: PROzac PO SCH (09:00)
[2019-02-04] MEDS: COREG PO SCH ×2 (09:00→22:14)
[2019-02-04] MEDS: ZESTRIL PO SCH (09:00)
[2019-02-04] MEDS: FEOSOL PO SCH (09:01)
[2019-02-04] MEDS: LANOXIN PO SCH (09:01)
[2019-02-04] MEDS: ALDACTONE PO SCH (09:01)
--- NOTE | 2019-02-04 09:50 | Progress Note ---
Assessment and Plan Assessment and plan: Patient is 53 yo with hyperternsion, CAD, CHF. He presented with shortness of breath from [place]. He was seen in Ed and diagnosed with acute on chronic CHF, started on Lasix iv, Coreg. he was evaluated by cardiology. also evaluated by Psych for bipolar. he improved, he states he had live vest but left it at [facility], [place]. He is now medically stable awaiting new life vest from [employer]. also case management working on half-way since he needs a place. he is on Eliquis Acute on chronic systolic CHF Admitted to Tele lasix iv Lisinopril Coreg Cardiology following He feels better, less SOB He states he had a life vest which he states is at [facility]. Case management working to get it Bipolar patient admitted here from [facility] Discussed with Psych. 1013 rescinded Hypertension Monitor BP History of stroke. GERD Full code status Medically stable for discharge Awaiting lifevest and placement assistance. History Interval history: Less Shortness of breath Less leg edema No chest pain Hospitalist Physical - Physical exam Narrative exam: Gen: Not in acute distress, sitting up in chair HEENT: Normocephalic, atraumatic Neck: supple, no JVD Heart: S1 and S2 reg, no murmurs, rubs or gallop Lungs: clear, no crackles Abd: soft, non tender, non distended, normal BS Ext: Bilateral pedal edema, no clubbing, no cyanosis Neuro: Awake,alert, Oriented X 3. No focal signs - Constitutional Vitals: Temp Pulse Resp BP Pulse Ox 97.0 F L 78 18 108/68 98 02/04/19 07:42 02/04/19 09:01 02/04/19 07:57 02/04/19 09:01 02/04/19 07:42 General appearance: Present: no acute distress Results - Labs CBC & Chem 7: 02/03/19 05:04 02/02/19 09:48 Labs: Laboratory Last Values WBC 7.5 K/mm3 (4.5-11.0) 01/30/19 06:25 RBC 4.27 M/mm3 (3.65-5.03) 01/30/19 06:25 Hgb 10.9 gm/dl (11.8-15.2) L 02/03/19 05:04 Hct 33.6 % (35.5-45.6) L 02/03/19 05:04 MCV 79 fl (84-94) L 01/30/19 06:25 MCH 26 pg (28-32) L 01/30/19 06:25 MCHC 32 % (32-34) 01/30/19 06:25 RDW 19.0 % (13.2-15.2) H 01/30/19 06:25 Plt Count 219 K/mm3 (140-440) 01/30/19 06:25 Lymph % (Auto) 30.8 % (13.4-35.0) 01/30/19 06:25 [place] % (Auto) 8.5 % (0.0-7.3) H 01/30/19 06:25 Eos % (Auto) 2.6 % (0.0-4.3) 01/30/19 06:25 Baso % (Auto) 0.2 % (0.0-1.8) 01/30/19 06:25 Lymph # 2.3 K/mm3 (1.2-5.4) 01/30/19 06:25 [place] # 0.6 K/mm3 (0.0-0.8) 01/30/19 06:25 Eos # 0.2 K/mm3 (0.0-0.4) 01/30/19 06:25 Baso # 0.0 K/mm3 (0.0-0.1) 01/30/19 06:25 Seg Neutrophils % 57.9 % (40.0-70.0) 01/30/19 06:25 Seg Neutrophils # 4.4 K/mm3 (1.8-7.7) 01/30/19 06:25 PT 17.4 Sec. (12.2-14.9) H 02/01/19 05:33 INR 1.46 (0.87-1.13) H 02/01/19 05:33 APTT 29.7 Sec. (24.2-36.6) 02/01/19 05:33 Sodium 140 mmol/L (137-145) 02/02/19 09:48 Potassium 4.9 mmol/L (3.6-5.0) 02/02/19 09:48 Chloride 98.3 mmol/L (98-107) 02/02/19 09:48 Carbon Dioxide 28 mmol/L (22-30) 02/02/19 09:48 19 mmol/L 02/02/19 09:48 BUN 35 mg/dL (9-20) H 02/02/19 09:48 1.2 mg/dL (0.8-1.5) 02/02/19 09:48 Estimated GFR > 60 ml/min 02/02/19 09:48 29 % 02/02/19 09:48 Glucose 134 mg/dL (75-100) H 02/02/19 09:48 POC Glucose 135 (70-105) H 02/01/19 05:35 6.0 % (4-6) 01/29/19 13:58 Calcium 8.8 mg/dL (8.4-10.2) 02/02/19 09:48 0.60 mg/dL (0.1-1.2) 01/30/19 06:25 AST 17 units/L (5-40) 01/30/19 06:25 ALT 18 units/L (7-56) 01/30/19 06:25 94 units/L (35-129) 01/30/19 06:25 < 0.010 ng/mL (0.00-0.029) 01/29/19 13:58 NT-Pro-B Natriuret Pep 8431 pg/mL (0-900) H 01/29/19 13:58 5.5 g/dL (6.3-8.2) L 01/30/19 06:25 3.1 g/dL (3.9-5) L 01/30/19 06:25 1.3 % 01/30/19 06:25 Amylase 30 units/L (27-131) 01/31/19 16:20 26 units/L (13-60) 01/31/19 16:20 Colorless (Yellow) 01/29/19 18:10 Clear (Clear) 01/29/19 18:10 8.0 (5.0-7.0) H 01/29/19 18:10 Ur Specific [place] 1.006 (1.003-1.030) 01/29/19 18:10 <15 mg/dl mg/dL (Negative) 01/29/19 18:10 Neg mg/dL (Negative) 01/29/19 18:10 Neg mg/dL (Negative) 01/29/19 18:10 Neg (Negative) 01/29/19 18:10 Neg (Negative) 01/29/19 18:10 Neg (Negative) 01/29/19 18:10 < 2.0 mg/dL (<2.0) 01/29/19 18:10 Ur Leukocyte Esterase Neg (Negative) 01/29/19 18:10 < 1.0 /HPF (0.0-6.0) 01/29/19 18:10 1.0 /HPF (0.0-6.0) 01/29/19 18:10 Digoxin 0.3 ng/mL (0.9-2.0) L 02/02/19 05:10 Valproic Acid 51.6 ug/mL (50-100) 02/01/19 09:54 Active Medications - Current Medications Current Medications: Generic Name Dose Route Start Last Admin Trade Name Freq PRN Reason Stop Dose Admin Acetaminophen 650 mg 01/29/19 21:53 02/04/19 08:57 Tylenol PO 650 mg Q4H PRN Administration Pain MILD(1-3)/Fever >100.5/RAUSCH Albuterol 2.5 mg 01/30/19 00:53 Proventil IH Q4HRT PRN Shortness Of Breath Albuterol 2.5 mg 01/30/19 08:00 02/04/19 07:50 Proventil IH 2.5 mg TIDRT ZULMA Administration Apixaban 5 mg 01/29/19 22:00 02/03/19 22:43 Eliquis PO 5 mg BID ZULMA Administration Protocol Carvedilol 3.125 mg 01/29/19 22:00 02/04/19 09:00 Coreg PO 3.125 mg BID ZULMA Administration Digoxin 0.125 mg 02/03/19 10:00 02/04/19 09:01 Lanoxin PO 0.125 mg DAILY ZULMA Administration Divalproex Sodium 250 mg 01/30/19 08:00 02/04/19 09:[address] PO 250 mg TID ZULMA Administration Ferrous Sulfate 325 mg 01/30/19 10:00 02/04/19 09:01 Feosol PO 325 mg QAM ZULMA Administration Fluoxetine HCl 20 mg 01/31/19 16:00 02/04/19 09:00 Prozac PO 20 mg QDAY ZULMA Administration Furosemide 40 mg 01/30/19 06:00 02/04/19 06:25 Lasix IV 40 mg 0600,1800 ZULMA Administration Hydromorphone HCl 0.5 mg 01/29/19 21:53 Dilaudid IV Q3H PRN Pain , Severe (7-10) Lisinopril 2.5 mg 01/30/19 10:00 02/04/19 09:00 Zestril PO 2.5 mg QAM ZULMA Administration Melatonin 5 mg 01/31/19 22:00 02/03/19 22:42 Melatonin PO 5 mg QHS ZULMA Administration Ondansetron HCl 4 mg 01/29/19 21:53 Zofran IV Q8H PRN Nausea And Vomiting Pantoprazole Sodium 40 mg 02/02/19 22:00 02/03/19 22:43 Protonix PO 40 mg BID ZULMA Administration Sodium Chloride 10 ml 01/29/19 22:00 02/03/19 22:44 Sodium Chloride Flush Syringe 10 Ml IV 10 ml BID ZULMA Administration Sodium Chloride 10 ml 01/29/19 21:55 Sodium Chloride Flush Syringe 10 Ml IV PRN PRN LINE FLUSH Spironolactone 12.5 mg 01/29/19 22:00 02/04/19 09:01 Aldactone PO 12.5 mg QDAY ZULMA Administration
[2019-02-04] MEDS: SODIUM CHLORIDE FLUSH SYRINGE 10 ML IV SCH ×2 (10:00→22:20)
[2019-02-04] MEDS: ELIQUIS PO SCH ×2 (10:00→22:14)
[2019-02-04] MEDS: PROTONIX PO SCH ×2 (10:00→22:20)
--- NOTE | 2019-02-04 13:18 | Progress Note ---
Assessment and Plan Cardiac status is stable for DC from cardiology standpoint on current cardiac regimen. The only issue is that he needs a lifevest prior to DC. Pt states that [employer] is in possession of his LifeVest - he states that he has called and requested LifeVest to be returned to [facility] to him. Will await their reply. D/w Life[employer]est service liaison representative who will also try to obtain pt's LifeVest. Pt is also homeless and thus case management is assisting pt. The patient has been seen in conjunction with Dr. Donovan who agrees with the a ssessment and plan of care. - Patient Problems (1) Acute HFrEF (heart failure with reduced ejection fraction) Current Visit: Yes Status: Acute (2) Cardiomyopathy Current Visit: Yes Status: Acute (3) NSVT (nonsustained ventricular tachycardia) Current Visit: Yes Status: Acute (4) Pericardial effusion Current Visit: Yes Status: Acute (5) COPD (chronic obstructive pulmonary disease) Current Visit: Yes Status: Chronic (6) Hypertension Current Visit: Yes Status: Chronic Qualifiers: Hypertension type: essential hypertension Qualified Code(s): I10 - Essential (primary) hypertension (7) H/O: CVA (cerebrovascular accident) Current Visit: Yes Status: Chronic (8) Bipolar disorder Current Visit: Yes Status: Chronic Subjective Date of service: 02/04/19 Principal diagnosis: Acute HFrEF, CMP, Pericardial effusion, COPD, Bipolar DO, HTN Interval history: pt resting in bed, no current complaints. in SR on tele, no acute events noted overnight. Objective Last Vital Signs Temp 97.8 F 02/04/19 11:38 Pulse 87 02/04/19 11:38 Resp 14 02/04/19 11:38 BP 111/74 02/04/19 11:38 Pulse Ox 98 02/04/19 11:38 - Physical Examination General: No Apparent Distress HEENT: Positive: EOMI, Normocephaly, Mucus Membranes Moist Neck: Positive: neck supple, trachea midline, JVD/HJR Cardiac: Positive: Reg Rate and Rhythm, S1/S2 Lungs: Positive: Decreased Breath Sounds Neuro: Positive: Grossly Intact Abdomen: Positive: Soft, Active Bowel Sounds. Negative: Tender Skin: Positive: Clear. Negative: Rash Musculoskeletal: Normal Range of Motion Extremities: Present: +2 Edema (pitting bilateral leg edema) - Imaging and Cardiology EKG: image reviewed - EKG Sinus rhythms and dysrhythmias: sinus rhythm Ventricular dysrhythmias: non-sustained ventricular
[2019-02-04] MEDS: MELATONIN PO SCH (22:22)
[2019-02-05] MEDS: PROVENTIL IH SCH ×2 (07:58→13:47)
[2019-02-05] MEDS ORDERED: LASIX PO SCH (10:00)
[2019-02-05] MEDS: PROTONIX PO SCH (10:14)
[2019-02-05] MEDS: FEOSOL PO SCH (10:14)
[2019-02-05] MEDS: ALDACTONE PO SCH (10:14)
[2019-02-05] MEDS: PROzac PO SCH (10:14)
[2019-02-05] MEDS: ELIQUIS PO SCH (10:14)
[2019-02-05] MEDS: LANOXIN PO SCH (10:15)
[2019-02-05] MEDS: COREG PO SCH (10:16)
[2019-02-05] MEDS: SODIUM CHLORIDE FLUSH SYRINGE 10 ML IV SCH (10:16)
[2019-02-05] MEDS: ZESTRIL PO SCH (10:16)
--- NOTE | 2019-02-05 11:31 | Progress Note ---
Assessment and Plan Cardiac status is stable for DC from cardiology standpoint on current cardiac regimen. He is to be given a new LifeVest prior to discharge. Pending LifeVest placement, pt may discharge from cardiology standpoint. Recommend follow up in our office with Dr. Zurita within 3-5 days of hospital discharge ([phone]). The patient has been seen in conjunction with Dr. Donovan who agrees with the assessment and plan of care. - Patient Problems (1) Acute HFrEF (heart failure with reduced ejection fraction) Current Visit: Yes Status: Acute (2) Cardiomyopathy Current Visit: Yes Status: Acute (3) NSVT (nonsustained ventricular tachycardia) Current Visit: Yes Status: Acute (4) Pericardial effusion Current Visit: Yes Status: Acute (5) COPD (chronic obstructive pulmonary disease) Current Visit: Yes Status: Chronic (6) Hypertension Current Visit: Yes Status: Chronic Qualifiers: Hypertension type: essential hypertension Qualified Code(s): I10 - Essential (primary) hypertension (7) H/O: CVA (cerebrovascular accident) Current Visit: Yes Status: Chronic (8) Bipolar disorder Current Visit: Yes Status: Chronic Subjective Date of service: 02/05/19 Principal diagnosis: Acute HFrEF, CMP, Pericardial effusion, COPD, Bipolar DO, HTN Interval history: pt resting in bed, no current complaints. in SR on tele, no acute events noted overnight. Objective Last Vital Signs Temp 97.9 F 02/05/19 05:06 Pulse 81 02/05/19 10:15 Resp 18 02/05/19 07:57 BP 99/68 02/05/19 10:16 Pulse Ox 92 02/05/19 00:58 - Physical Examination General: No Apparent Distress HEENT: Positive: EOMI, Normocephaly, Mucus Membranes Moist Neck: Positive: neck supple, trachea midline, JVD/HJR Cardiac: Positive: Reg Rate and Rhythm, S1/S2 Lungs: Positive: Decreased Breath Sounds Neuro: Positive: Grossly Intact Abdomen: Positive: Soft, Active Bowel Sounds. Negative: Tender Skin: Positive: Clear. Negative: Rash Musculoskeletal: Normal Range of Motion Extremities: Present: +2 Edema (pitting bilateral leg edema) - Imaging and Cardiology EKG: image reviewed - EKG Sinus rhythms and dysrhythmias: sinus rhythm Ventricular dysrhythmias: non-sustained ventricular
--- NOTE | 2019-02-05 13:48 | Discharge Summary ---
Providers - Providers Date of Admission: 01/29/19 15:37 Attending physician: JODY WRIGHT MD 01/29/19 21:53 Consult to Physician [CONS] Routine Comment: Consulting Provider: SERAFIN GUTHRIE Physician Instructions: Reason For Exam: chf 01/30/19 11:41 Consult to Mental Health [CONS] Routine Reason For Exam: Bipolar on [address] consult to:: Psych Notified:: yes Phone number called:: [phone] Was contact made?: Yes If yes, spoke with:: soila Time called:: 12:42 01/31/19 07:42 Consult to Wound/ET Nurse [CONS] Routine Reason For Exam: wound eval 01/31/19 08:00 Consult to Wound/ET Nurse [CONS] Routine Reason For Exam: wound eval Primary care physician: RUSLAN MARKHAM Hospitalization Condition: Stable Hospital course: Patient is 53 yo with hyperternsion, CAD, CHF. He presented with shortness of breath from [place]. He was seen in Ed and diagnosed with acute on chronic CHF, started on Lasix iv, Coreg. he was evaluated by cardiology. also evaluated by Psych for bipolar. he improved, he states he had live vest but left it at [facility]. He is now medically stable awaiting new life vest from [employer]. also case management working on fpc since he needs a place. he is on Eliquis Acute on chronic systolic CHF Admitted to Tele lasix iv Lisinopril Coreg Cardiology following He feels better, less SOB He states he had a life vest which he states is at [facility]. Case management working to get it Bipolar patient admitted here from [facility] Discussed with Psych. 1013 rescinded Hypertension Monitor BP History of stroke. GERD Full code status Medically stable for discharge Awaiting lifevest and placement assistance. Disposition: DC-01 TO HOME OR SELFCARE Time spent for discharge: 35 mins Core Measure Documentation - Core Measures Any of the following diagnoses?: heart failure Exam - Constitutional Vitals: Temp Pulse Resp BP Pulse Ox 97.9 F 81 18 99/68 95 02/05/19 05:06 02/05/19 10:15 02/05/19 07:57 02/05/19 10:16 02/05/19 08:00 Plan Activity: advance as tolerated, fall precautions Diet: low salt Special Instructions: restrict fluid intake to (1200cc/day), record daily BP diary Follow up with: Miller Hurley [facility] [Outside] - 7 Days (Monday - Monday 8:00am - 5:00pm. Walk-In only Must arrive at 7:45 as available slots are first come, first served. To be eligible for services, you must bring the following with you: 1. Proof of Identity 2. Proof of Residence 3. Proof of Income 4. Insurance Cards 5. Referral documents and/or hospital discharge papers.) [facility] [Outside] - 7 Days [facility] [Outside] - 7 Days RUSLAN MARKHAM [Primary Care Provider] - 3-5 Days ADELE CONNOR MD [Staff Physician] - 3 Days (3-5days) Prescriptions: Melatonin [Melatonin 5MG TAB] 5 mg PO QHS #30 tablet Spironolactone [Aldactone] 12.5 mg PO QDAY #30 tablet Carvedilol [Coreg] 3.125 mg PO BID #[address] [Depakote Dr] 250 mg PO TID #90 tablet Apixaban [Eliquis] 5 mg PO BID #60 tablet Ferrous Sulfate [Iron 325 MG] 325 mg PO QAM #30 tablet Digoxin [Lanoxin] 0.125 mg PO DAILY #30 tablet Furosemide [Lasix TAB] 40 mg PO QDAY #30 tablet Pantoprazole [Protonix TAB] 40 mg PO BID #30 tablet FLUoxetine [PROzac] 20 mg PO QDAY #30 capsule Lisinopril [Zestril TAB] 2.5 mg PO QAM #30 tablet
[2019-02-05 14:29] VITALS: BP 104/79
== END 2019-02-05 17:40 | disposition home or self-care (01) | DRG 292 ==
LOC: ED 11:15 → 4A 15:37 → 3A 02-04 12:10
PROVIDERS: ADMIT Internal Medicine; ATTEND Internal Medicine
DX: I11.0 Hypertensive heart disease with heart failure (principal); I31.3 Pericardial effusion (noninflammatory); I47.2 Ventricular tachycardia; F43.10 Post-traumatic stress disorder, unspecified; I50.23 Acute on chronic systolic (congestive) heart failure; X58.XXXA Exposure to other specified factors, initial encounter; I42.9 Cardiomyopathy, unspecified; J44.9 Chronic obstructive pulmonary disease, unspecified; I25.10 Atherosclerotic heart disease of native coronary artery without angina pectoris; F31.9 Bipolar disorder, unspecified; K21.9 Gastro-esophageal reflux disease without esophagitis; I25.2 Old myocardial infarction; Z82.49 Family history of ischemic heart disease and other diseases of the circulatory system; Z87.891 Personal history of nicotine dependence; Z86.73 Personal history of transient ischemic attack (TIA), and cerebral infarction without residual deficits; Z79.01 Long term (current) use of anticoagulants; Z79.51 Long term (current) use of inhaled steroids; Z79.899 Other long term (current) drug therapy; Y93.89 Activity, other specified; Y92.098 Other place in other non-institutional residence as the place of occurrence of the external cause; Y99.8 Other external cause status
CPT/HCPCS: 36415; 71045; 80048; 80053; 80162; 80164; 81001; 82150; 82270; 82962; 83036; 83690; 83880; 84484; 85014; 85018; 85025; 85610; 85730; 93005; 93010; 93306; 94640; 94644; 96374; G0378; J1170; J1644; J1940